=== PATIENT | female | born 1990 | race African-American/Black ===

== ENCOUNTER 2018-04-30 22:32 | Inpatient (IN) | payer MEDICAID ==
[~2018-04-30] VITALS: Ht 165.1 cm; Wt 56.7 kg
--- NOTE | 2018-04-30 23:30 | NUR ---
PT AA/OX4 COMPLAINING OF N/V, STOMACH PAIN, CHEST TIGHTNESS SINCE YESTERDAY. NO S/S SOB. SKIN PINK, WARM, DRY. ACTIVE BOWEL SOUNDS NOTED. AMBULATED TO HOSPITAL BED WITH STEADY GAIT. NAD. VSS. STABLE CONDITION. WILL CONTINUE TO MONITOR.
[2018-05-01] VITALS (7 sets, daily range): BP systolic 90–112; BP diastolic 44–83
[2018-05-01] MEDS ORDERED: ONDANSETRON HCL/PF 4 MG/2 ML VIAL IVP ONE
[2018-05-01] MEDS ORDERED: IV NS 0.9% 500 ML BAG IV ONE
[2018-05-01] MEDS ORDERED: ONDANSETRON HCL/PF 4 MG/2 ML VIAL ONE (00:27)
[2018-05-01 00:44] LABS: BASOPHILS # (AUTO) 0.2 /CMM (0.0-0.2); BASOPHILS % (AUTO) 2.5 % (0.0-2.0); HEMATOCRIT 44 % (33-45); HEMOGLOBIN 14.2 g/dL (11.5-14.8); LYMPHOCYTES # (AUTO) 1.3 /CMM (0.8-4.8); LYMPHOCYTES % (AUTO) 16.7 % (20.0-44.0); MEAN CORPUSCULAR HEMOGLOBIN 29 PG (26.0-33.0); MEAN CORPUSCULAR HGB CONC 32 g/dl (31.0-36.0); MEAN CORPUSCULAR VOLUME 90 fL (82-100); MONOCYTES # (AUTO) 0.8 /CMM (0.1-1.30); MONOCYTES % (AUTO) 10.2 % (2.0-12.0); NEUTROPHILS # (AUTO) 5.6 /CMM (1.8-8.9); NEUTROPHILS % (AUTO) 69.6 % (43.0-81.0); PLATELET COUNT (AUTO) 794 /CMM (150-450); RDW COEFFICIENT OF VARIATION 17.4 (11.5-15.0); RED BLOOD CELL COUNT(AUTO) 4.91 MIL/uL (4.0-5.2)
[2018-05-01 00:54] LABS: CALCIUM, SERUM 7.9 mg/dL (8.5-10.1); CREATININE 0.6 mg/dL (0.6-1.3); POTASSIUM 3.5 mmol/L (3.5-5.1)
[2018-05-01] MEDS ORDERED: INSULIN REGULAR, HUMAN 100 UNIT in IV NS 0.9% 99 ML IV PRN ×2 (01:30)
[2018-05-01] MEDS ORDERED: INSULIN REGULAR, HUMAN 100 UNIT/ML 10 ML VIAL ONE (01:51)
[2018-05-01 02:26] LABS: APPEARANCE,URINE CLEAR (CLEAR); BILIRUBIN,URINE 1+ (NEGATIVE); BLOOD, URINE NEGATIVE Ery/uL (NEGATIVE); COLOR,URINE YELLOW (YELLOW); KETONES,URINE 3+ (NEGATIVE); LEUKOCYTE ESTERASE ,URINE NEGATIVE (NEGATIVE); NITRITE, URINE NEGATIVE (NEGATIVE); PROTEIN,URINE 2+ mg/dl (NEGATIVE); UGLUCOSE 1+ mg/dL (NEGATIVE); UROBILINOGEN,URINE 0.2 EU/dL (0.2)
[2018-05-01 02:32] LABS: RBC,URINE 0-2 /HPF (0-2)
[2018-05-01 02:33] LABS: BACTERIA,URINE Moderate /HPF (None Seen); MUCUS,URINE Moderate /LPF (None Seen); SQUAMOUS EPITHELIAL CELL,UR Few /HPF (None Seen)
[2018-05-01 02:34] LABS: HYALINE CASTS, URINE Few /LPF (None Seen)
--- NOTE | 2018-05-01 02:37 | NUR ---
Patient is resting comfortably in bed with eyes closed. Easily aroused. VSS
[2018-05-01] MEDS ORDERED: AZITHROMYCIN 500 MG in IV D5W 250 ML IV ONE (03:00)
[2018-05-01] MEDS ORDERED: CEFTRIAXONE 1GM BAG (ER ONLY) 1 GM/50 ML PIGGYBACK IV ONE (03:00)
--- NOTE | 2018-05-01 03:03 | NUR ---
REPORT GIVEN TO CONNOR MEGHANN MURRAY
[2018-05-01] MEDS ORDERED: CEFTRIAXONE 1 G VIAL ONE (03:05)
[2018-05-01] MEDS ORDERED: AZITHROMYCIN 500 MG VIAL ONE (03:05)
--- NOTE | 2018-05-01 04:00 | NUR ---
PER MD IDALIA WHITTAKER ORDERS TO DC INSULIN DRIP
--- NOTE | 2018-05-01 04:05 | NUR ---
pt transported to an unit stable condition. [email or web address]. romy.
--- NOTE | 2018-05-01 04:10 | NUR ---
CONNOR RN NOTE PT RECEIVED AWAKE AND ALERT. AMBULATED SAFELY TO BED. ON ROOM AIR AND SATURATING WELL. NOTED DROWSY AND LETHARGIC BUT ANSWERING QUESTIONS PROPERLY. C/O SLIGHT CHEST TIGHTNESS. ENCOURAGED TO REPOSITION. C/O NAUSEA WITH NO EPISODES OF VOMITING. CALL LIGHT WITHIN REACH. WILL MONITOR.
[2018-05-01] MEDS ORDERED: DEXTROSE 50%-WATER 50 ML DISP.SYRIN IV PRN (04:30)
[2018-05-01] MEDS ORDERED: INSULIN GLARGINE, 100 UNIT/ML CARTRIDGE SQ SCH (04:30)
[2018-05-01] MEDS ORDERED: Z GUARD REMEDY 2 OZ OINT TP PRN (05:00)
[2018-05-01] MEDS ORDERED: ACETAMINOPHEN 325 MG TABLET PO PRN (05:00)
[2018-05-01] MEDS ORDERED: ONDANSETRON HCL/PF 4 MG/2 ML VIAL IVP PRN (05:00)
[2018-05-01] MEDS ORDERED: ZOLPIDEM TARTRATE 5 MG TABLET PO PRN (05:00)
[2018-05-01] MEDS: BLOOD SUGAR DIAGNOSTIC 1 EACH STRIP IN SCH ×5 (05:33→21:40)
[2018-05-01] MEDS: INSULIN REGULAR, HUMAN 100 UNIT/ML 3 ML VIAL SQ PRN ×5 (05:35→21:49)
[2018-05-01] MEDS ORDERED: IV NS 0.9% 1,000 ML IV PRN (06:00)
[2018-05-01] MEDS ORDERED: ENOXAPARIN SODIUM 40 MG/0.4 ML DISP.SYRIN SQ SCH (06:00)
[2018-05-01] MEDS ORDERED: IV NS 0.9% 1,000 ML BAG IV ONE (06:30)
--- NOTE | 2018-05-01 07:10 | NUR ---
CONNOR RN OPENING NOTE REPORT RECEIVED FROM PM NURSE.PATIENT IS SLEEPING IN BED.EASILY AROUSABLE. ON ROOM AIR NO SOB NO DISTRESS NOTED AT THIS TIME. NOTED DROWSY AND LETHARGIC BUT ANSWERING QUESTIONS PROPERLY. ON TELE MONITOR ST 116.IV ON LAC#22 WITH NS BOLUS ONGOING. CALL LIGHT WITHIN REACH.BED IS LOCKED AND IN LOW POSITION.SRX3. WILL CONTINUE TO MONITOR.
--- NOTE | 2018-05-01 07:37 | NUR ---
CONNOR RN CLOSING NOTE PT REMAINED STABLE DURING SHIFT. NO ACUTE DISTRESS NOTED. STARTED 3L BOLUS OF NS X1 AND THEN CONTINUE ON NS AT 200ML/HR CONTINUOUS. ACCU CHECKS Q4H.BLOOD SUGAR 270 AND COVERED WITH 12 UNITS OF REGULAR INSULIN. ALL NEEDS ATTENDED TO PROMPTLY. WILL ENDORSE TO NEXT SHIFT FOR CONTINUITY OF CARE.
[2018-05-01] MEDS ORDERED: ESCI10TA PO (08:13)
[2018-05-01] MEDS ORDERED: INSU100V7 SQ (08:13)
[2018-05-01] MEDS: ASPIRIN EC 81 MG TABLET.DR PO SCH (08:54)
[2018-05-01] MEDS: IV NS 0.9% 1,000 ML IV PRN ×3 (10:09→21:58)
--- NOTE | 2018-05-01 10:48 | NUR ---
Social service consult requested by Dr. العراقي for homelessness and drug use. Pt. is a 27 year old female who was admitted to [facility] for DKA. MARIANNA met with pt. bedside. Pt. is alert and oriented x 4. Pt. was initially guarded and defensive but became less guarded and cooperative as the assessment continued. Pt. states she is homeless and has been homeless for " too long." Pt. use to live at her auntie's house in [place] but was requested to leave. Pt. currently live in [facility]. Pt. is linked to services with [facility] facility located at [id number] [place] [address] Karen . Pt's telehealth case manager is Mounika. MARIANNA requested for pt. to sign authorization for release of information so SW can speak with Mounika. Pt. signed release of information authorization form. Pt. denies alcohol use but does use drugs. Pt's drug of choice is methamphetamines. Pt. last used methamphetamine was prior to arrival at [facility]. Pt. is looking into drug treatment program at [facility] and stated she has informed her telehealth case manager Mounika who is assisting the pt. SW also informed pt. she will reach out to [facility] and send a referral for their detox program. Pt. has a history of Depression and Anxiety. Pt. states she is currently having visual hallucinations, in particular seeing zombies due to withdrawal induced hallucinations. Pt. currently denies suicidal and homicidal ideations at this time. MARIANNA contacted Christel Larkin, intake ramp and cargo supervisor at [facility] x [phone] and left her a voicemail message requesting a call back. MARIANNA also contacted Kasey at [facility] and left a voicemail message requesting a call back x [phone]. MARIANNA updated egg caser Nanda regarding tentative discharge plan.
--- NOTE | 2018-05-01 11:17 | NUR ---
MARIANNA left a voicemail message for Mounika, case finishing machine adjuster for pt. at [facility] and requested a call back. MARIANNA also informed her, if she calls on the weekend to contact Nanda showcase maker at [phone].
--- NOTE | 2018-05-01 11:32 | NUR ---
MARIANNA contacted [facility] detox [facility] and spoke to Maria Isabel in the detox program inquiring if they have a female bed availability. Maria Isabel informed MARIANNA that they have no beds at this time.
[2018-05-01 12:11] LABS: CALCIUM, SERUM 7.8 mg/dL (8.5-10.1); CREATININE 0.7 mg/dL (0.6-1.3); MAGNESIUM 1.6 mg/dL (1.8-2.4)
--- NOTE | 2018-05-01 13:15 | NUR ---
CONNOR RN NOTES PATIENT C/O CHEST PAIN ON L UPPER CHEST,NON-RADIATING.AXOX4.VITAL SIGNS STABLE.ON TELE MONITOR SINUS RHYTHM OF 92. MADE AWARE.STAT EKG DONE.RELAYED RESULT TO .SEEN BY IN PERSON.ECHO RESULT IS SEEN .ASKED TO COVER WITH PAIN MEDICATION NORCO.WILL CONTINUE TO MONITOR.
[2018-05-01] MEDS: HYDROCODONE/APAP 10/325MG 1 EA TABLET PO PRN (13:35)
--- NOTE | 2018-05-01 14:57 | NUR ---
Patient is homeless, referred to high school social studies teacher for eval. Pt. is a 27 year old female who was admitted to [facility] for DKA. MARIANNA met with pt. bedside. Pt. is alert and oriented x 4. Pt. was initially guarded and defensive but became less guarded and cooperative as the assessment continued. Pt. states she is homeless and has been homeless for " too long." Pt. use to live at her auntie's house in [place] but was requested to leave. Pt. currently live in [facility]. Pt. is linked to services with [facility] located at [id number] [place] [address] . Pt's lead case manager is Mounika. MARIANNA requested for pt. to sign authorization for release of information so SW can speak with Mounika. Pt. signed release of information authorization form. Pt. denies alcohol use but does use drugs. Pt's drug of choice is methamphetamines. Pt. last used methamphetamine was prior to arrival at [facility]. Pt. is looking into drug treatment program at [facility] and stated she has informed her lead case manager Mounika who is assisting the pt. SW also informed pt. she will reach out to [facility] and send a referral for their detox program. Pt. has a history of Depression and Anxiety. Pt. states she is currently having visual hallucinations, in particular seeing zombies due to withdrawal induced hallucinations. Pt. currently denies suicidal and homicidal ideations at this time. MARIANNA contacted Christel Larkin, intake carpenter supervisor at [facility] x [phone] and left her a voicemail message requesting a call back. MARIANNA also contacted Kasey at [facility] and left a voicemail message requesting a call back x [phone]. MARIANNA updated returned case inspector Nanda regarding tentative discharge plan. Addendum: 05/01/18 at 1458 by JANICE ANNE RN Amended: Links added.
[2018-05-01] MEDS ORDERED: K PHOS NEUTRAL 250 MG TABLET PO ONE (15:30)
--- NOTE | 2018-05-01 15:30 | NUR ---
RN NOTES PATIENT REFUSED BLOOD DRAW.SHE WANT ANOTHER MAKE UP ARRANGER TO DRAW HER LABS.MAKE UP ARRANGER MADE AWARE.SHE SAID SOMEONE COMING AT 5PM.WILL GO TO THE PATIENT.
[2018-05-01] MEDS: POTASSIUM CHLORIDE 20 MEQ TAB.PRT.SR PO SCH ×3 (15:46→18:03)
[2018-05-01] MEDS: Magnesium 1GM/D5W 100ML PREMIX 100 ML IV SCH ×2 (15:47→17:00)
--- NOTE | 2018-05-01 16:00 | NUR ---
WELCOME WAGON HOSTESS NOTES PHARMACY MADE AWARE ABOUT THE LOW K,Mg AND PHOS.GOT NEW ORDERS.
--- NOTE | 2018-05-01 18:53 | NUR ---
HUSBANDRY TECHNICIAN CLOSING NOTE PATIENT IS AWAKE IN BED WATCHING TV. ON ROOM AIR NO SOB NO DISTRESS NOTED AT THIS TIME. STILL LETHARGIC BUT ANSWERING QUESTIONS PROPERLY. ON TELE MONITOR ST 92 .IV ON LAC#22 WITH NS @100 CC/HR.LEFT MESSAGE TO BOYFRIEND TO GET NAME OF THE MEDICATION SHE WAS TAKING AT HOME.WILL ASK PM NURSE TO FOLLOW UP. CALL LIGHT WITHIN REACH.BED IS LOCKED AND IN LOW POSITION.SRX3. WILL ENDORSE TO PM NURSE FOR JUSTO.
[2018-05-01 21:21] LABS: CALCIUM, SERUM 7.7 mg/dL (8.5-10.1); CREATININE 0.7 mg/dL (0.6-1.3); POTASSIUM 3.9 mmol/L (3.5-5.1)
[2018-05-01 21:25] LABS: MAGNESIUM 2.1 mg/dL (1.8-2.4); PHOSPHORUS 3.2 mg/dL (2.5-4.9)
[2018-05-01] MEDS: INSULIN GLARGINE, 100 UNIT/ML CARTRIDGE SQ SCH (21:48)
--- NOTE | 2018-05-01 23:45 | NUR ---
VISUAL COMMUNICATIONS INSTRUCTOR NOTE GAVE REPORT TO NICA ZAVALETA FOR CONTINUITY OF CARE.
[2018-05-02] VITALS (7 sets, daily range): BP systolic 98–112; BP diastolic 58–77
[2018-05-02] MEDS: BLOOD SUGAR DIAGNOSTIC 1 EACH STRIP IN SCH ×6 (00:12→21:32)
[2018-05-02] MEDS: INSULIN REGULAR, HUMAN 100 UNIT/ML 3 ML VIAL SQ PRN ×5 (00:15→21:31)
--- NOTE | 2018-05-02 03:32 | NUR ---
PULP MILL SUPERVISOR NOTE RN RECHECKED GLUCOSE, 32, GIVEN DEXTROSE IV PER PROTOCOL ALONG WITH JUICE AND SNACKS, WILL RECHECK. PT IN NO ACUTE DISTRESS LYING IN BED.
[2018-05-02 05:57] LABS: BASOPHILS % (AUTO) 0.6 % (0.0-2.0); EOSINOPHILS % (AUTO) 0.9 % (0.0-6.0); HEMATOCRIT 37 % (33-45); HEMOGLOBIN 12.1 g/dL (11.5-14.8); LYMPHOCYTES # (AUTO) 1.7 /CMM (0.8-4.8); LYMPHOCYTES % (AUTO) 35.2 % (20.0-44.0); MEAN CORPUSCULAR HEMOGLOBIN 30 PG (26.0-33.0); MEAN CORPUSCULAR HGB CONC 33 g/dl (31.0-36.0); MEAN CORPUSCULAR VOLUME 91 fL (82-100); MONOCYTES # (AUTO) 0.5 /CMM (0.1-1.30); MONOCYTES % (AUTO) 11.5 % (2.0-12.0); NEUTROPHILS # (AUTO) 2.5 /CMM (1.8-8.9); NEUTROPHILS % (AUTO) 51.8 % (43.0-81.0); PLATELET COUNT (AUTO) 612 /CMM (150-450); RDW COEFFICIENT OF VARIATION 17.3 (11.5-15.0); RED BLOOD CELL COUNT(AUTO) 4.03 MIL/uL (4.0-5.2); WHITE BLOOD COUNT (AUTO) 4.7 K/uL (4.3-11.0)
[2018-05-02] MEDS ORDERED: AZITHROMYCIN 500 MG in IV D5W 250 ML IV SCH (06:00)
[2018-05-02] MEDS ORDERED: CEFTRIAXONE 2 G in IV D5W 100 ML IV SCH (06:00)
[2018-05-02 06:16] LABS: CALCIUM, SERUM 8.3 mg/dL (8.5-10.1); CREATININE 0.6 mg/dL (0.6-1.3); MAGNESIUM 1.8 mg/dL (1.8-2.4); PHOSPHORUS 3.4 mg/dL (2.5-4.9); POTASSIUM 3.7 mmol/L (3.5-5.1)
[2018-05-02] MEDS: ASPIRIN EC 81 MG TABLET.DR PO SCH (09:10)
[2018-05-02] MEDS: ENOXAPARIN SODIUM 40 MG/0.4 ML DISP.SYRIN SQ SCH (09:11)
[2018-05-02] MEDS: IV NS 0.9% 1,000 ML IV PRN (10:15)
[2018-05-02] MEDS: HYDROCODONE/APAP 10/325MG 1 EA TABLET PO PRN ×2 (11:01→20:50)
[2018-05-02] MEDS ORDERED: CEPH500T PO (13:15)
[2018-05-02] MEDS: FERROUS SULFATE (325 MG) 325 MG/TAB TABLET PO SCH (16:38)
[2018-05-02] MEDS: FOLIC ACID 1 MG TABLET PO SCH (16:38)
[2018-05-02] MEDS: LACTOBACILLUS RHAMNOSUS GG 1 EACH CAP.SPRINK PO SCH (16:38)
[2018-05-02] MEDS: MULTIVITAMINS,THERAGRAN 1 UDTAB TABLET PO SCH (16:38)
--- NOTE | 2018-05-02 19:16 | NUR ---
RN NOTE PT REMAINED STABLE THROUGHOUT SHIFT, AMBULATES, PO INTAKE 100% ASKS FOR SNACKS, BLOOD SUGAR BEEN CHEACKE ORDERED, AND COVERED WITH INSULIN. NEEDS MET, SAFETY MEASURES IN PLACE, WILL ENDORSE TO UTILITY SYSTEM REPAIRER.
--- NOTE | 2018-05-02 19:30 | NUR ---
TELERN FULLY AWAKE, RESTING QUIETLY NO NEEDS FOR NOW, TO CONTINUE.
--- NOTE | 2018-05-02 20:50 | NUR ---
TELERN ON THE MONITOR. VERBALIZES HEADACHE, REQUESTED TO TAKE NORCO, REFUSES TYLENOL. 1 TAB OF NORCO ADMINISTERED. SAFETY PRECAUTIONS EMPHASIZED.
--- NOTE | 2018-05-02 21:15 | NUR ---
TELERN BS WAS 223, COVERED WITH 8 UNITS OF REGULAR INSULIN SQ. LANTUS ADMIISTERED ORDERED. ACCUCHECKED Q 4 HOURS ORDERED. SNACKS PROVIDED. RELIEF FROM NORCO.
[2018-05-02] MEDS: INSULIN GLARGINE, 100 UNIT/ML CARTRIDGE SQ SCH (21:32)
--- NOTE | 2018-05-02 23:21 | NUR ---
CUFF KNITTER REMAINS SR ON THE MONITOR. SLEEPING APPEARS COMFORTABLE.
[2018-05-03] VITALS (8 sets, daily range): BP systolic 94–110; BP diastolic 55–74
[2018-05-03] MEDS: BLOOD SUGAR DIAGNOSTIC 1 EACH STRIP IN SCH ×4 (01:22→12:39)
--- NOTE | 2018-05-03 01:22 | NUR ---
TELERN BS WAS 80. WENT BACK TO SLEEP.
--- NOTE | 2018-05-03 05:05 | NUR ---
TELERN BS WAS 141, REFUSED ANY COVERAGE FOR NOW. STATED WILL WAIT TILL BREAKFAST IS SERVED.
[2018-05-03] MEDS: AZITHROMYCIN 250 MG TABLET PO SCH (05:35)
[2018-05-03 06:04] LABS: BASOPHILS % (AUTO) 0.6 % (0.0-2.0); EOSINOPHILS % (AUTO) 1.3 % (0.0-6.0); HEMATOCRIT 37 % (33-45); HEMOGLOBIN 11.9 g/dL (11.5-14.8); LYMPHOCYTES # (AUTO) 1.8 /CMM (0.8-4.8); LYMPHOCYTES % (AUTO) 47.3 % (20.0-44.0); MEAN CORPUSCULAR HEMOGLOBIN 30 PG (26.0-33.0); MEAN CORPUSCULAR HGB CONC 33 g/dl (31.0-36.0); MEAN CORPUSCULAR VOLUME 92 fL (82-100); MONOCYTES # (AUTO) 0.4 /CMM (0.1-1.30); MONOCYTES % (AUTO) 11.6 % (2.0-12.0); NEUTROPHILS # (AUTO) 1.5 /CMM (1.8-8.9); NEUTROPHILS % (AUTO) 39.2 % (43.0-81.0); PLATELET COUNT (AUTO) 524 /CMM (150-450); RDW COEFFICIENT OF VARIATION 17.8 (11.5-15.0); RED BLOOD CELL COUNT(AUTO) 3.99 MIL/uL (4.0-5.2); WHITE BLOOD COUNT (AUTO) 3.9 K/uL (4.3-11.0)
--- NOTE | 2018-05-03 06:05 | NUR ---
TELERN REMAINS SR ON THE MONITOR. NO OTHER NEEDS MADE
[2018-05-03 06:18] LABS: CALCIUM, SERUM 8.3 mg/dL (8.5-10.1); CREATININE 0.5 mg/dL (0.6-1.3); MAGNESIUM 1.8 mg/dL (1.8-2.4); PHOSPHORUS 4.2 mg/dL (2.5-4.9); POTASSIUM 3.8 mmol/L (3.5-5.1)
--- NOTE | 2018-05-03 07:15 | NUR ---
TRANSPORTATION MAINTENANCE OPERATOR OPENING NOTE RECEIVED PATIENT THIS MORNING IN STABLE CONDITION, NO SIGNS OR SYMPTOMS OF DISTRESS. SINUS RHYTHM ON SCIENTIFIC DATABASE CURATOR. A&OX4, LEFT AC IV SITE INTACT. BED IN LOW AND LOCKED POSITION, ALL NEEDS MET CURRENTLY, CALL LIGHT WITHIN REACH, WILL CONTINUE TO MONITOR.
[2018-05-03] MEDS: FOLIC ACID 1 MG TABLET PO SCH (08:48)
[2018-05-03] MEDS: MULTIVITAMINS,THERAGRAN 1 UDTAB TABLET PO SCH (08:48)
[2018-05-03] MEDS: LACTOBACILLUS RHAMNOSUS GG 1 EACH CAP.SPRINK PO SCH ×2 (08:48→16:26)
[2018-05-03] MEDS: FERROUS SULFATE (325 MG) 325 MG/TAB TABLET PO SCH ×2 (08:48→16:26)
[2018-05-03] MEDS: ASPIRIN EC 81 MG TABLET.DR PO SCH (08:48)
[2018-05-03] MEDS: INSULIN REGULAR, HUMAN 100 UNIT/ML 3 ML VIAL SQ PRN ×2 (08:51→17:19)
[2018-05-03] MEDS: ENOXAPARIN SODIUM 40 MG/0.4 ML DISP.SYRIN SQ SCH (08:52)
[2018-05-03] MEDS: HYDROCODONE/APAP 10/325MG 1 EA TABLET PO PRN ×2 (08:56→19:45)
[2018-05-03] MEDS ORDERED: DEXTROSE 50%-WATER 50 ML DISP.SYRIN IV PRN (13:30)
[2018-05-03] MEDS ORDERED: *INSULIN REGULAR(HUMULIN R)HUM 100 UNIT/ML VIAL SQ PRN (13:30)
--- NOTE | 2018-05-03 15:58 | NUR ---
SENIOR CLIMATE ADVISOR NOTES SPOKE WITH DR FORRESTER TO OBTAIN MEDICATION FOR GAS SINCE PATIENT IS COMPLAINING FOR GAS AND WANTS SIMETHICONE, WILL F/U WITH .
[2018-05-03] MEDS: BLOOD SUGAR DIAGNOSTIC 1 EACH STRIP VI SCH ×2 (17:10→21:33)
--- NOTE | 2018-05-03 18:56 | NUR ---
FELT CUTTER CLOSING NOTE PATIENT RESTING IN BED IN STABLE CONDITION, ON ROOM AIR, NO RESPIRATORY DISTRESS OR COMPLAINT OF PAIN. A&OX4, ABLE TO VERBALIZE NEEDS. SINUS RHYTHM ON FOUNTAIN DISPENSER, HR IN THE 70S. IV SITE ON LEFT AC INTACT. ALL NEEDS MET CURRENTLY, CALL LIGHT WITHIN REACH, BED LOW AND LOCKED, WILL ENDORSE TO ONCOMING NURSE.
--- NOTE | 2018-05-03 19:45 | NUR ---
SUPPLY CHAIN CONSULTANT INITIAL NOTES, RECEIVED PATIENT IN BED ALERT AND ORIENTED X4 ABLE TO VERBALIZED NEEDS AND CONCERNS, BREATHING EVEN AND UNLABORED, NO S/S OF SOB/ACUTE DISTRESS NOTED AT THIS TIME, C/O HEADACHE AT THIS TIME, WILL ADMINISTERED MEDICATION ORDERED, SINUS RHYTHM ON HARD TILE SETTER APPRENTICE IN 70S AT THIS TIME, LEFT AC IV SITE INTACT, NO S/S OF ABNORMALITY OR INFECTION NOTED AT THIS TIME, BED IN LOW AND LOCKED POSITION, ALL NEEDS PROVIDED , CALL LIGHT WITHIN REACH, WILL CONTINUE TO MONITOR.
[2018-05-03] MEDS: INSULIN GLARGINE, 100 UNIT/ML CARTRIDGE SQ SCH (21:22)
[2018-05-04] VITALS: BP 98/62
[2018-05-04 04:00] VITALS: BP 93/57
[2018-05-04] MEDS: AZITHROMYCIN 250 MG TABLET PO SCH (06:09)
[2018-05-04 06:49] LABS: CREATININE 0.6 mg/dL (0.6-1.3); MAGNESIUM 1.8 mg/dL (1.8-2.4); PHOSPHORUS 3.8 mg/dL (2.5-4.9); POTASSIUM 4.2 mmol/L (3.5-5.1)
--- NOTE | 2018-05-04 06:53 | NUR ---
DIRECTOR OF SLOT OPERATIONS CLOSING NOTES, PATIENT IN BED SLEEPING AT THIS TIME, BREATHING EVEN AND UNLABORED, NO S/S OF SOB/ACUTE DISTRESS NOTED AT THIS TIME, SINUS RHYTHM ON TOWER LOADER OPERATOR IN 70S AT THIS TIME, LEFT AC IV SITE INTACT, NO S/S OF ABNORMALITY OR INFECTION NOTED AT THIS TIME, BED IN LOW AND LOCKED POSITION, ALL NEEDS PROVIDED , NO S/S OF HYPER/HYPOGLYCEMIC EPISODES, STABLE THROUGHOUT THE NIGHT, CALL LIGHT WITHIN REACH, ENDORSE CONTINUITY OF CARE TO ONCOMING NURSE. .
--- NOTE | 2018-05-04 07:15 | NUR ---
AGENT BASED MODELER OPENING NOTE RECEIVED PATIENT SITTING IN BED, STABLE CONDITION, SINUS RHYTHM ON LOCKSTITCH TUNNEL ELASTIC OPERATOR, HEART RATE IN THE 80S. NO APPARENT DISTRESS OR COMPLAINT OF PAIN. DISCUSSED CARE PLAN FOR TODAY WITH PATIENT. BED LOW AND LOCKED, CALL LIGHT WITHIN REACH, WILL CONTINUE TO MONITOR.
[2018-05-04 08:00] VITALS: BP 108/70
[2018-05-04] MEDS: BLOOD SUGAR DIAGNOSTIC 1 EACH STRIP VI SCH ×2 (08:26→11:31)
[2018-05-04] MEDS: LACTOBACILLUS RHAMNOSUS GG 1 EACH CAP.SPRINK PO SCH (08:28)
[2018-05-04] MEDS: ENOXAPARIN SODIUM 40 MG/0.4 ML DISP.SYRIN SQ SCH (08:28)
[2018-05-04] MEDS: ASPIRIN EC 81 MG TABLET.DR PO SCH (08:28)
[2018-05-04] MEDS: MULTIVITAMINS,THERAGRAN 1 UDTAB TABLET PO SCH (08:28)
[2018-05-04] MEDS: FERROUS SULFATE (325 MG) 325 MG/TAB TABLET PO SCH (08:28)
[2018-05-04] MEDS: FOLIC ACID 1 MG TABLET PO SCH (08:28)
[2018-05-04] MEDS: INSULIN REGULAR, HUMAN 100 UNIT/ML 3 ML VIAL SQ PRN (08:32)
--- NOTE | 2018-05-04 09:51 | NUR ---
MARIANNA contacted [facility] and left another voicemail message for transaction coordinator Christel Larkin x [phone] requesting a call back. MARIANNA also sent her an email at [email or web address]
--- NOTE | 2018-05-04 10:31 | NUR ---
MARIANNA received a call back from Christel Larkin, Intake Grape Picker x [phone] stating that pt. can meet her at [facility] tomorrow at 9AM for their detox program. MARIANNA met with pt. bedside. Pt. is alert and oriented x 4. Pt. was friendly and cooperative with SW. MARIANNA informed pt. that she has an assessment at [facility] scheduled for 9AM tomorrow May 05 for their detox program. [facility] is located at [address] [place] [address], in [place] Pt. was very appreciative and stated she would like to leave today and go see her new accounts clerk at [facility] located at [address] [place] [address] in [place] and will go tomorrow to [place] at 9AM. MARIANNA encouraged pt. to keep with her appointment tomorrow at [facility]. MARIANNA informed Nursing drywall application supervisor Christel that pt. will need $2 for the bus to transport her to the christian. Christel to follow up with pt's MEGHANN Santana regarding the $2. Pt. stated she will also go to [facility] after her christian to take a shower and meet with her disease case manager rn Mounika. MARIANNA also gave pt. a pair of sneakers since pt. did not have any shoes. No other social service needs are required at this time. CONNOR Barrett and pt's RN Esther have been updated with pt's discharge plan. MARIANNA has requested an early lunch for the pt. since she wants to leave the hospital by noon today. Addendum: 05/04/18 at 1241 by SAE CABRAL Homeless Patient waiver form was signed by pt. and placed in pt's chart.
--- NOTE | 2018-05-04 12:20 | NUR ---
RN CLOSING NOTE PATIENT PREPARED FOR DISCHARGE, ATE LUNCH, EXITCARE COMPLETED, PAPERWORK, DISCHARGE INSTRUCTIONS, AND TEACHING PROVIDED DC PAPERWORK SIGNED, TELE BOX REMOVED, IV SITE IN LEFT AC REMOVED, BELONGINGS CHECKED AND SIGNED, VITAL SIGNS STABLE, BLOOD SUGAR CHECKED, 2 DOLLARS GIVEN TO PATIENT FROM RANDY SHIRT LINE OPERATOR, PATIENT REFUSED INSULIN AT THIS TIME. PATIENT EXITED THE BUILDING WITH BELONGINGS IN STABLE CONDITION AT 11:56AM.
== END 2018-05-04 13:00 | disposition home or self-care (01) | DRG 145 ==
LOC: ER 22:34 → TELE-TD 05-01 03:05 → TELE1 05-01 16:50
PROVIDERS: ADMIT Nurse Practitioner Acute Care; ATTEND Internal Medicine
DX: R07.81 Pleurodynia (principal); J15.9 Unspecified bacterial pneumonia; E10.65 Type 1 diabetes mellitus with hyperglycemia; E83.39 Other disorders of phosphorus metabolism; E83.42 Hypomagnesemia; F15.20 Other stimulant dependence, uncomplicated; Z79.4 Long term (current) use of insulin; Z59.0 Homelessness; F12.90 Cannabis use, unspecified, uncomplicated; D47.3 Essential (hemorrhagic) thrombocythemia; Z91.19 Patient's noncompliance with other medical treatment and regimen; Z87.891 Personal history of nicotine dependence; G43.909 Migraine, unspecified, not intractable, without status migrainosus; Z79.899 Other long term (current) drug therapy
CPT/HCPCS: 36415; 71045-TC; 71250-TC; 80048-TC; 80061-TC; 80305; 81000-TC; 82962-TC; 83540-TC; 83605-TC; 83735-TC; 84100-TC; 84703-TC; 85025-TC; 85652-TC; 87040-TC; 87081-TC; 87086-TC; 93307-TC; A4216; A4606; J0456; J0696; J1650; J1815; J2405; J3475; J7030; J7060; Z7610

== ENCOUNTER 2022-01-04 14:24 | Inpatient (IN) | payer MEDICAID, OTHER ==
[2022-01-04] VITALS (7 sets, daily range): BP systolic 115–136; BP diastolic 77–96
[~2022-01-04] VITALS: Ht 165.1 cm; Wt 47.8 kg
[~2022-01-04 14:24] MED LIST: ESCI10TA PO; INSU100V7 SQ
--- NOTE | 2022-01-04 14:30 | NUR ---
BIBRA[facility] C/O WEAKNESS/FEELING SICK SINCE THIS MORNING. HYPERGLYCEMIA, BS: 567 "INSULIN NOT WORKING". PLACED ON BED, AAOX3.
--- NOTE | 2022-01-04 14:31 | NUR ---
CALLED FOR MIDLINE ETA 8PM.
--- NOTE | 2022-01-04 14:33 | NUR ---
POC GLUCOSE 374 MG/DL
--- NOTE | 2022-01-04 14:40 | NUR ---
BLOOD DRAWN AND SENT TO LAB
[2022-01-04] MEDS ORDERED: ONDANSETRON HCL/PF 4 MG/2 ML VIAL ONE (14:43)
[2022-01-04 15:00] LABS: BASOPHILS # (AUTO) 0.1 K/uL (0.0-0.2); BASOPHILS % (AUTO) 1.2 % (0.0-2.0); EOSINOPHILS % (AUTO) 0.3 % (0.0-6.0); HEMATOCRIT 39 % (33-45); HEMOGLOBIN 11.8 g/dL (11.5-14.8); LYMPHOCYTES % (AUTO) 26.5 % (20.0-44.0); MEAN CORPUSCULAR HGB CONC 31 g/dl (31.0-36.0); MEAN CORPUSCULAR VOLUME 80 fL (82-100); MONOCYTES # (AUTO) 0.4 K/uL (0.1-1.30); MONOCYTES % (AUTO) 5.1 % (2.0-12.0); NEUTROPHILS % (AUTO) 66.9 % (43.0-81.0); PLATELET COUNT (AUTO) 566 K/uL (150-450); RED BLOOD CELL COUNT(AUTO) 4.83 MIL/uL (4.0-5.2); WHITE BLOOD COUNT (AUTO) 7.4 K/uL (4.3-11.0)
[2022-01-04] MEDS ORDERED: IV NS 0.9% 1,000 ML BAG IV ONE ×2 (15:00→17:30)
[2022-01-04] MEDS ORDERED: ONDANSETRON HCL/PF 4 MG/2 ML VIAL IVP ONE (15:00)
[2022-01-04 15:21] LABS: ALANINE AMINOTRANSFERASE 52 U/L (12-78); ALBUMIN 3.7 g/dL (3.4-5.0); ALKALINE PHOSPHATASE 203 U/L (46-116); ASPARTATE AMINOTRANSFERASE 53 U/L (15-37); BILIRUBIN,DIRECT 0.1 mg/dL (0.0-0.2); BILIRUBIN,TOTAL 0.3 mg/dL (0.2-1.0); CALCIUM, SERUM 9.3 mg/dL (8.5-10.1); CARBON DIOXIDE 17 mmol/L (21-32); CHLORIDE 90 mmol/L (98-107); CREATININE 0.8 mg/dL (0.6-1.3); LIPASE 215 U/L (73-393); POTASSIUM 4.2 mmol/L (3.5-5.1); SODIUM SERUM 128 mmol/L (136-145); TOTAL PROTEIN, SERUM 7.9 g/dL (6.4-8.2); UREA NITROGEN, BLOOD 20 mg/dL (7-18)
[2022-01-04] MEDS ORDERED: ONDANSETRON HCL/PF - ER 4 MG/2 ML VIAL IV ONE (15:30)
--- NOTE | 2022-01-04 15:30 | NUR ---
Lexi zimmerman in ED - 01/04/22 at 1531 by SATINDER BIBRA39 [facility] C/O WEAKNESS/FEELING SICK SINCE THIS MORNING. HYPERGLYCEMIA, BS: 567 "INSULIN NOT WORKING". PLACED ON BED, AAOX3
[2022-01-04 15:35] LABS: GLUCOSE 361 mg/dL (74-106)
[2022-01-04] MEDS ORDERED: INSULIN REGULAR, HUMAN 100 UNITS in IV NS 0.9% 100 ML IV PRN ×2 (16:00)
--- NOTE | 2022-01-04 16:00 | NUR ---
SWAB FOR COVID 19 SENT TO LAB
[2022-01-04 16:05] LABS: PHOSPHORUS 3.3 mg/dL (2.5-4.9)
[2022-01-04 16:08] LABS: BILIRUBIN,URINE NEGATIVE (NEGATIVE); COLOR,URINE YELLOW (YELLOW); LEUKOCYTE ESTERASE ,URINE NEGATIVE (NEGATIVE); NITRITE, URINE NEGATIVE (NEGATIVE); PH,URINE 5.5 (5.0-8.0); PROTEIN,URINE NEGATIVE (NEGATIVE); UGLUCOSE >=1000 mg/dL (NEGATIVE); UROBILINOGEN,URINE 0.2 EU/dL (0.2)
--- NOTE | 2022-01-04 16:17 | NUR ---
MOVE SHEET SUBMITTED AND CALLED FOR ICU BED.
[2022-01-04 16:33] LABS: BACTERIA,URINE Few /HPF (None Seen); RBC,URINE 0-2 /HPF (0-2); SQUAMOUS EPITHELIAL CELL,UR Few /HPF (None Seen); YEAST,URINE Rare /HPF (None Seen)
[2022-01-04] MEDS ORDERED: MAGNESIUM HYDROXIDE 30 ML UDC PO PRN (17:00)
[2022-01-04] MEDS ORDERED: ZOLPIDEM TARTRATE 5 MG TABLET PO PRN (17:00)
[2022-01-04] MEDS ORDERED: Z GUARD REMEDY 4 OZ OINT TP PRN (17:00)
[2022-01-04] MEDS ORDERED: MAG HYDROX/AL HYDROX/SIMETH 30 ML UDC PO PRN (17:00)
[2022-01-04] MEDS ORDERED: IV D5/0.45 NACL 1,000 ML IV SCH (17:00)
[2022-01-04] MEDS ORDERED: ONDANSETRON HCL/PF 4 MG/2 ML VIAL IVP PRN (17:00)
[2022-01-04] MEDS ORDERED: ACETAMINOPHEN 325 MG TABLET PO PRN (17:00)
[2022-01-04] MEDS ORDERED: FAMOTIDINE (20 MG) 20 MG TABLET ONE (17:22)
[2022-01-04] MEDS ORDERED: FAMOTIDINE/PF INJ 20 MG/2 ML VIAL IV ONE ×3 (17:23→23:30)
[2022-01-04] MEDS ORDERED: IV PREMIX NS +20MEQ KCL 1,000 L IV PRN (17:30)
--- NOTE | 2022-01-04 17:34 | NUR ---
GOT BED 256 ICU
--- NOTE | 2022-01-04 18:00 | NUR ---
REPORT GIVEN TO MEGHANN RUBIO ICU
--- NOTE | 2022-01-04 18:25 | NUR ---
PATIENT ADMITTED TO ICU FOR JUSTO
[2022-01-04] MEDS ORDERED: INSULIN REGULAR, HUMAN 100 UNIT in IV NS 0.9% 99 ML IV PRN ×2 (18:30)
--- NOTE | 2022-01-04 18:35 | NUR ---
RN opening notes: received patient from ER, alert,oriented x3, with dx of DKA,respiration is even and unlabored on room air, with right and left AC gauge 20 patent and flushed well, no pain or discomfort, skin assessment done,skin intact, patient continent using bedside commode, blood sugar 155mg/dl. on insulin drip at rate 2.32units and D5 1/2 NS at 125 ml/hr, patient sinus tachycardia on monitor, bed kept in low and locked position, call light within reach
[2022-01-04] MEDS: BLOOD SUGAR DIAGNOSTIC 1 EACH STRIP IN SCH ×3 (18:42→21:04)
[2022-01-04] MEDS ORDERED: IV D5/0.45 NACL 1,000 ML IV PRN (19:00)
[2022-01-04 20:55] LABS: CALCIUM, SERUM 8.2 mg/dL (8.5-10.1); CREATININE 0.5 mg/dL (0.6-1.3); POTASSIUM 3.9 mmol/L (3.5-5.1)
[2022-01-04 21:13] LABS: MAGNESIUM 1.8 mg/dL (1.8-2.4); PHOSPHORUS 2.7 mg/dL (2.5-4.9)
--- NOTE | 2022-01-04 21:21 | NUR ---
ICU/RN: SPOKE WITH JOSE BARTON ABOUT PT LATEST POC BLOOD GLUCOSE 142 AND LATEST ANION GAP 11. NEW ORDERS TO DC INSULIN DRIP START ACCU-CHECK Q4H x4 WITH MODERATE SLIDING SCALE, THEN SWITCH TO ACCU-CHECK Q6H WITH MODERATE SLIDING SCALE. CONTINUE CURRENT IV FLUIDS AND CANCEL MIDNIGHT BMP AND RECHECK IN AM.
[2022-01-04] MEDS ORDERED: INSULIN REGULAR, HUMAN 100 UNIT/ML 3 ML VIAL SQ PRN ×3 (21:30→22:00)
[2022-01-04] MEDS ORDERED: DEXTROSE 50%-WATER 50 ML DISP.SYRIN IV PRN ×3 (21:30→22:00)
--- NOTE | 2022-01-04 23:09 | NUR ---
ICU/RN: PT COMPLAINT OF HEARTBURN. SPOKE WITH JOSE BARTON. PEPCID 20MG IVP x1 ORDER RECIEVED AND CARRIED OUT. WILL CONTINUE TO MONITOR.
[2022-01-05] VITALS (24 sets, daily range): BP systolic 80–127; BP diastolic 33–87
[2022-01-05] MEDS ORDERED: BLOOD SUGAR DIAGNOSTIC 1 EACH STRIP IN SCH ×4 (01:00→18:00)
[2022-01-05] MEDS ORDERED: DEXTROSE 50%-WATER 50 ML DISP.SYRIN IV PRN ×2 (01:30→09:30)
[2022-01-05] MEDS: BLOOD SUGAR DIAGNOSTIC 1 EACH STRIP IN SCH ×2 (01:36→05:06)
[2022-01-05] MEDS: INSULIN REGULAR, HUMAN 100 UNIT/ML 3 ML VIAL SQ PRN ×4 (01:36→17:30)
[2022-01-05] MEDS: IV NS 0.9% 1,000 ML IV PRN ×4 (01:37→21:20)
--- NOTE | 2022-01-05 01:37 | NUR ---
ICU/RN: SPOKE WITH JOSE MISHRA ACNP ABOUT PT POC GLUCOSE 483. NEW ORDERS TO CHANGE SLIDING SCALE TO AGGRESSIVE GIVE MAX COVERAGE AND CHANGE IVF TO NS@125ML/HR. CARRIED OUT. WILL CONTINUE TO MONITOR.
[2022-01-05 05:43] LABS: BASOPHILS # (AUTO) 0.1 K/uL (0.0-0.2); BASOPHILS % (AUTO) 1.1 % (0.0-2.0); EOSINOPHILS % (AUTO) 0.5 % (0.0-6.0); HEMATOCRIT 30 % (33-45); HEMOGLOBIN 9.6 g/dL (11.5-14.8); LYMPHOCYTES # (AUTO) 1.7 K/uL (0.8-4.8); LYMPHOCYTES % (AUTO) 19.5 % (20.0-44.0); MEAN CORPUSCULAR HGB CONC 32 g/dl (31.0-36.0); MEAN CORPUSCULAR VOLUME 77 fL (82-100); MONOCYTES # (AUTO) 0.5 K/uL (0.1-1.30); MONOCYTES % (AUTO) 5.6 % (2.0-12.0); NEUTROPHILS # (AUTO) 6.3 K/uL (1.8-8.9); NEUTROPHILS % (AUTO) 73.3 % (43.0-81.0); PLATELET COUNT (AUTO) 450 K/uL (150-450); RED BLOOD CELL COUNT(AUTO) 3.93 MIL/uL (4.0-5.2); WHITE BLOOD COUNT (AUTO) 8.6 K/uL (4.3-11.0)
[2022-01-05 05:55] LABS: CALCIUM, SERUM 8.3 mg/dL (8.5-10.1); CREATININE 0.7 mg/dL (0.6-1.3); PHOSPHORUS 2.3 mg/dL (2.5-4.9); POTASSIUM 3.9 mmol/L (3.5-5.1)
--- NOTE | 2022-01-05 06:59 | NUR ---
ICU/RN: ENDORSED TO KIM ZAVALETA TO CHANGE INSULIN SLIDING SCALE TO Q6H AFTER THE 1300 POC GLUCOSE CHECK.
--- NOTE | 2022-01-05 07:05 | NUR ---
RN NOTES RECEIVED PT ON BED, A/Ox4, ON RA, NO DISTESS NOTED, ON TELE ST HR IN 110'S, IV SITES CLEAN, DRY AND INTACT, NS AT 125CC/HR RUNNING , SR UP x3, CALL LIGHT WITHIN EASY REACH, BED LOCKED AND IN LOWEST POSITION, CONTINUE TO MONITOR .
[2022-01-05] MEDS ORDERED: K PHOS NEUTRAL 250 MG TABLET PO ONE (09:00)
[2022-01-05] MEDS ORDERED: *INSULIN REGULAR(HUMULIN R)HUM 100 UNIT/ML VIAL SQ PRN (09:30)
[2022-01-05] MEDS ORDERED: IV PREMIX NS +20MEQ KCL 20 MEQ/L BAG IV ONE (10:17)
--- NOTE | 2022-01-05 10:41 | NUR ---
RN NOTES REPORT GIVEN TO ANTIONETTE ZAVALETA FOR CONTINUITY OF CARE , PT TRANSFERRED TO ROOM 314 MS STATUS IN STABLE CONDITION, WITH ALL HER BELONGINGS .
--- NOTE | 2022-01-05 10:50 | NUR ---
ADMISSION RN NOTES PT ADMITTED FROM ICU. RECEIVED REPORT FROM ICU NURSE PEDRO. RECEIVED PT AWAKE, A/O X4. ABLE TO MAKE NEEDS KNOWN. ON RA, TOLERATING WELL. BREATHING EVEN AND UNLABORED. NOT IN ANY SIGN OF DISTRESS. DENIES PAIN OR DISCOMFORT AT THIS TIME. ON TELE MONITOR WITH CURRENT READING OF SINUS TACH, HR 110. NO COMPLAIN OF CARDIAC DISCOMFORT OR DISTRESS AT THIS TIME. IV ACCESS ON RAC G#20 SALINE LOCK, INTACT AND PATENT. IV ACCESS ON LFA G #20 INTACT AND PATENT WITH NS RUNNING AT 125ML/HR. SKIN INTACT WITH NO SKIN IMPAIRMENT NOTED. SAFETY MEASURES IN PLACE: BED AT LOWEST AND LOCKED POSITION, SIDE RAILS UPX2, CALL LIGHT WITHIN EASY REACH. WILL CONTINUE TO MONITOR PT AND WITH PLAN OF CARE.
[2022-01-05] MEDS: BLOOD SUGAR DIAGNOSTIC 1 EACH STRIP VI SCH ×3 (11:55→22:06)
--- NOTE | 2022-01-05 19:05 | NUR ---
RN NOTES PT WAS SCANNED INCORRECTLY FOR ACCUCHECK. BUT PT'S, ACCUCHECK DONE AT 1200 WAS 356 MG/DL, 15 UNITS WAS GIVEN ORDERED PER SLIDING SCALE. ACCUCHECK AT 1730 IS 238 MG/DL, 6 UNITS WAS GIVEN ORDERED PER SLIDING SCALE. RECHECKED PT'S CURRENT BS AND IT'S 359 MG/DL. Addendum: 01/05/22 at 2049 by WARREN PEREZ RN ADDENDUM ACCUCHECK RESULTS WAS DOCUMENTED IN EMAR.
--- NOTE | 2022-01-05 19:35 | NUR ---
ELECTRIC MOTOR CONTROLS ASSEMBLER CLOSING NOTES PT IN BED AWAKE. A/O X4. ABLE TO MAKE NEEDS KNOWN. PT ON RA, TOLERATING WELL. BREATHING EVEN AND UNLABORED. NOT IN ANY SIGN OF RESPIRATORY DISTRESS. ON TELE MONITOR WITH CURRENT READING OF SINUS TACH, HR 109. NO COMPLAIN OF CARDIAC DISCOMFORT OR DISTRESS VOICED AT THIS TIME. IV ACCESS IN RAC G #20 INTACT AND PATENT. ALSO IV ACCESS IN LFA G #20 INTACT AND PATENT WITH NS RUNNING AT 125ML/HR. SAFETY MEASURES IN PLACE: BED AT LOWEST AND LOCKED POSITION, SIDE RAILS UPX2, CALL LIGHT WITHIN EASY REACH. ENDORSED TO LABORER SHELLFISH PROCESSING NURSE FOR CONTINUITY OF CARE.
--- NOTE | 2022-01-05 19:36 | NUR ---
MS RN OPENING NOTE RECEIVED PATIENT IN BED WITH EYES CLOSED, EASY TO AROUSE. A/OX4. NO S/S OF APPARENT DISTRESS ON ROOM AIR. NO C/O PAIN AT THIS TIME. IV NS RUNNING @125 ML/HR. SAFETY IN PLACE. ORIENTED TO THE USE OF CALL LIGHT. SAFETY IN PLACE. WILL CONTINUE WITH PLAN OF CARE FOR PATIENT.
[2022-01-05] MEDS ORDERED: INSULIN GLARGINE, 100 UNIT/ML CARTRIDGE SQ SCH (22:00)
--- NOTE | 2022-01-05 22:31 | NUR ---
MS RN NOTE PATIENT BLOOD SUGAR 439 THIS 2200. INFORMATION STRATEGIST, TAD GARCIA MADE AWARE. PATIENT DOES HAVE SCHEDULED LANTUS GIVEN 30 UNITS AND COVERAGE 10 UNITS OF REGULAR INSULIN. PATIENT VERY NON-COMPLIANT WITH DIET AND GETS ANGRY AND PASSIVE WITH PATIENT TEACHING.
--- NOTE | 2022-01-05 22:34 | NUR ---
MS RN NOTE GIVEN AMBIEN 5 MG PER PATIENT REQUEST.
[2022-01-06 06:23] LABS: CALCIUM, SERUM 8.1 mg/dL (8.5-10.1); CREATININE 0.5 mg/dL (0.6-1.3); PHOSPHORUS 4.3 mg/dL (2.5-4.9); POTASSIUM 3.8 mmol/L (3.5-5.1)
[2022-01-06] MEDS: INSULIN REGULAR, HUMAN 100 UNIT/ML 3 ML VIAL SQ PRN ×2 (06:24→11:31)
[2022-01-06] MEDS: BLOOD SUGAR DIAGNOSTIC 1 EACH STRIP VI SCH ×2 (06:27→11:35)
--- NOTE | 2022-01-06 06:43 | NUR ---
MS RN NOTE CALLED DIETARY. PATIENT REQUESTING FOR EGG. THEY WILL SERVE SCRAMBLED EGG PER DIETARY.
--- NOTE | 2022-01-06 07:07 | NUR ---
MS RN NOTE REFUSED TO BE PUT BACK IN HER IV FLUIDS THIS MORNING. PER PATIENT "NO! I AM GOING HOME TODAY". BENEFITS OF FLUID EXPLAINED
--- NOTE | 2022-01-06 07:09 | NUR ---
MS RN CLOSING NOTE PATIENT IN BED WITH EYES CLOSED. EASY TO AROUSE. NO S/S OF APPARENT DISTRESS ON ROOM AIR. NO C/O PAIN AT THIS TIME. FLUIDS ON STANDBY-- ENDORSED TO MEGHANN MERINO PATIENT REFUSED. ALL NEEDS ATTENDED. ALL SCHEDULED MEDS ADMINISTERED. SAFETY KEPT IN PLACE THE WHOLE SHIFT. ENDORSED TO MEGHANN MERINO FOR CONTINUITY OF CARE.
--- NOTE | 2022-01-06 07:30 | NUR ---
MS RN OPENING NOTE RECEIVED PATIENT IN BED WITH EYES CLOSED, EASY TO AROUSE. A/OX4. NO S/S OF APPARENT DISTRESS ON ROOM AIR. NO C/O PAIN AT THIS TIME. IV ACCESS ON RAC G#20 AND LFA G#20, REFUSES IV FLUID AT THIS TIME. SAFETY MEASURES IN PLACE: BED ON LOWEST LOCKED POSITION, SIDE RAILS UP X 2, CALL LIGHT WITHIN EASY REACH. WILL CONTINUE TO MONITOR PATIENT ACCORDINGLY.
[2022-01-06 08:00] VITALS: BP 95/55
--- NOTE | 2022-01-06 13:04 | NUR ---
RN NOTES PATIENT IS FOR DISCHARGE TODAY. PER PATIENT SHE CANNOT RECALL THE ADDRESS WHERE SHE WAS TAKEN FROM BY THE AMBULANCE WHICH BROUGHT HER HERE. THE ADDRESS ON FILE PER PATIENT IS AN OLD INFORMATION. SHE WAS INSISTING THAT THE AMBULANCE THAT TOOK HER HERE HAS THE ADDRESS THAT SHE IS CURRENTLY STAYING AT. CALLED E.R, NO FILE FROM THE AMBULANCE WHO BROUGHT HER HERE. CALLED ADMISSION, PER ADMISSION EVERYTHING IS FORWARDED IN MEDICAL RECORDS. DISCUSSED WITH PATIENT THAT MEDICAL RECORDS IS NOT AVAILABLE TODAY. REFERRED TO MACHINE JOINT CUTTER, BUT PATIENT REFUSED TO WAIT FOR MACHINE JOINT CUTTER. PATIENT SIGNED THE HOMELESS WAIVER FORM, RESOURCES REGARDING FACILITIES WHICH CAN HELP HER WERE ALSO GIVEN.
--- NOTE | 2022-01-06 13:05 | NUR ---
RN NOTES PATIENT INSIST ON LEAVING. PATIENT TOLD NURSE SHE WILL BE PICKED UP BY HER FRIEND AND WILL JUST LOOK FOR THE PLACE WHERE SHE WAS TAKEN FROM BY THE AMBULANCE. REINFORCED ASSISTANT BRANCH MANAGER, BUT PATIENT ADAMANTLY REFUSED. RISK DISCUSSED BUT STILL INSISTING O LEAVE WITHOUT SOCIAL SERVICE CONSULT. MD AND CHARGE NURSE AWARE.
--- NOTE | 2022-01-06 13:06 | NUR ---
ACADEMIC RECORDS SPECIALIST NOTES DISCHARGED PATIENT IN STABLE CONDITION, VITAL SIGNS WITHIN NORMAL LIMITS. HOME MEDICATIONS AND FOLLOW UP DISCUSSED WITH THE PATIENT, VERBALIZED UNDERSTANDING. IV ACCESS REMOVED, COVERED WITH GAUZE, NO BLEEDING NOTED. BELONGINGS ACCOUNTED AND SIGNED FOR. WHEELED PATIENT DOWN TO LOBBY ACCOMPANIED BY MARCIA (PCT). PATIENT WAS PICKED UP BY A FRIEND. REFUSED TO PROVIDE FRIEND'S NAME. LEFT UNIT IN STABLE CONDITION. MD AND CHARGE NURSE AWARE OF DISCHARGE.
== END 2022-01-06 13:00 | disposition home or self-care (01) | DRG 420 ==
LOC: ER 14:27 → ICU 18:22 → MED 01-05 10:44
PROVIDERS: ADMIT Internal Medicine; ATTEND Internal Medicine
DX: E10.10 Type 1 diabetes mellitus with ketoacidosis without coma (principal); N17.0 Acute kidney failure with tubular necrosis; E44.1 Mild protein-calorie malnutrition; Z79.4 Long term (current) use of insulin; Z20.822 Contact with and (suspected) exposure to COVID-19; E10.42 Type 1 diabetes mellitus with diabetic polyneuropathy; F32.A Depression, unspecified; G43.909 Migraine, unspecified, not intractable, without status migrainosus; Z79.899 Other long term (current) drug therapy; E87.1 Hypo-osmolality and hyponatremia; E86.1 Hypovolemia; F19.11 Other psychoactive substance abuse, in remission; E88.09 Other disorders of plasma-protein metabolism, not elsewhere classified; Z87.891 Personal history of nicotine dependence; Z98.891 History of uterine scar from previous surgery; Z59.00 Homelessness unspecified
CPT/HCPCS: 36415; 80048-TC; 80076-TC; 81001; 82010-TC; 82962-TC; 83605-TC; 83690-TC; 83735-TC; 84100-TC; 84484-TC; 84703-TC; 85025-TC; 87040-TC; 87081-TC; 87086-TC; C9803; G0378; J1815; J2405; J3490; J7030

== ENCOUNTER 2022-01-19 16:01 | Emergency (ER) | payer OTHER ==
[~2022-01-19] VITALS: Ht 167.6 cm; Wt 49.4 kg
--- NOTE | 2022-01-19 16:10 | NUR ---
IV CANNULA G20 INSERTED ON LEFT FA. BLOOD DRAWN AND SENT TO LAB
--- NOTE | 2022-01-19 16:10 | NUR ---
vitor, from detox rehab, high blood sugar, took 11 units 2 hrs VETERINARY SURGEON with pale skin color. Placed comfortably in bed. Vitals checked. BS- HI. Dr. Jaimes made aware.
--- NOTE | 2022-01-19 16:10 | NUR ---
ACCUCHECK DONE.BS-HI. DR FELIX MADE AWARE
--- NOTE | 2022-01-19 16:15 | NUR ---
ATTACHED TO MONITOR
[2022-01-19] MEDS ORDERED: INSULIN REGULAR, HUMAN 100 UNIT/ML 10 ML VIAL IV ONE (16:30)
[2022-01-19] MEDS ORDERED: IV NS 0.9% 1,000 ML BAG IV ONE ×2 (16:30→18:30)
[2022-01-19 16:32] LABS: BASOPHILS # (AUTO) 0.1 K/uL (0.0-0.2); BASOPHILS % (AUTO) 1.2 % (0.0-2.0); HEMATOCRIT 33 % (33-45); HEMOGLOBIN 9.6 g/dL (11.5-14.8); LYMPHOCYTES # (AUTO) 1.5 K/uL (0.8-4.8); LYMPHOCYTES % (AUTO) 26.8 % (20.0-44.0); MEAN CORPUSCULAR HGB CONC 29 g/dl (31.0-36.0); MEAN CORPUSCULAR VOLUME 82 fL (82-100); MONOCYTES # (AUTO) 0.3 K/uL (0.1-1.30); MONOCYTES % (AUTO) 5.5 % (2.0-12.0); NEUTROPHILS # (AUTO) 3.6 K/uL (1.8-8.9); NEUTROPHILS % (AUTO) 65.5 % (43.0-81.0); PLATELET COUNT (AUTO) 495 K/uL (150-450); RED BLOOD CELL COUNT(AUTO) 4.09 MIL/uL (4.0-5.2); WHITE BLOOD COUNT (AUTO) 5.5 K/uL (4.3-11.0)
[2022-01-19] MEDS ORDERED: INSULIN REGULAR, HUMAN 100 UNIT/ML 10 ML VIAL ONE (16:38)
[2022-01-19 17:23] LABS: CALCIUM, SERUM 8.9 mg/dL (8.5-10.1); CREATININE 0.8 mg/dL (0.6-1.3); MAGNESIUM 1.8 mg/dL (1.8-2.4); PHOSPHORUS 4.7 mg/dL (2.5-4.9)
--- NOTE | 2022-01-19 17:55 | NUR ---
ACCUCHECK DONE AFTER 1 HR OF GIVING INSULIN. BS 348mg/dl. DR FELIX MADE AWARE
--- NOTE | 2022-01-19 18:27 | NUR ---
RESTAURANT CULINARY MANAGER AT BEDSIDE
[2022-01-19 19:19] LABS: CALCIUM, SERUM 7.9 mg/dL (8.5-10.1); CREATININE 0.6 mg/dL (0.6-1.3); POTASSIUM 4.1 mmol/L (3.5-5.1)
[2022-01-19 19:23] LABS: MAGNESIUM 1.5 mg/dL (1.8-2.4)
--- NOTE | 2022-01-19 19:47 | NUR ---
LATEST ACCUCHECK BS 231mg/dl, DR FELIX MADE AWARE
--- NOTE | 2022-01-19 20:30 | NUR ---
CALLED FACILITY, SPOKE TO MARIIA. HE SAID NOBODY CAN SCHEDULE MANAGER PATIENT. IF WE CAN ARRANGE TRANSPORTATION FOR HER. PATIENT MADE AWARE. DIRECTOR OF OPERATIONS HOME HEALTH ARRANGING FOR TRANSPO.
--- NOTE | 2022-01-19 20:32 | NUR ---
[facility] BLS WILL TRANSPORT PT IN 45 MINS.
[2022-01-19 21:04] LABS: MAGNESIUM 1.6 mg/dL (1.8-2.4)
--- NOTE | 2022-01-19 21:15 | NUR ---
REPORT GIVEN TO [facility] UNIT 260 WITH RUN NUMBER [id number] (KENDRICK). MR CHIANG MADE AWARE.
--- NOTE | 2022-01-19 21:32 | NUR ---
Patient discharged to home in stable condition. Written and verbal after care instructions given. Patient verbalizes understanding of instruction.
--- NOTE | 2022-01-19 21:32 | NUR ---
IV CANNULA REMOVED
[2022-01-19 21:33] VITALS: BP 114/61
== END 2022-01-19 21:34 ==
LOC: ER 16:02
DX: E10.65 Type 1 diabetes mellitus with hyperglycemia (principal); F32.A Depression, unspecified; G43.909 Migraine, unspecified, not intractable, without status migrainosus; Z86.69 Personal history of other diseases of the nervous system and sense organs; Z60.2 Problems related to living alone; Z79.4 Long term (current) use of insulin; Z79.899 Other long term (current) drug therapy
CPT/HCPCS: 36415; 80048 ×2; 82962 ×3; 83735 ×3; 84100 ×3; 85025; 96361; 96374; 99283; J1815; J7030 ×2

== ENCOUNTER 2022-02-02 19:39 | Emergency (ER) | payer OTHER ==
[~2022-02-02] VITALS: Ht 165.1 cm; Wt 61.2 kg
--- NOTE | 2022-02-02 19:49 | NUR ---
[id number] FROM HOME C/O "MID EPIGASTRIC BURNING" UNRELIEVED BY TUMS X1DAY. PATIENT HAS HX OF GERD. HAD 1 EPISODE OF VOMITTING TODAY. PATIENT IS ALERT AND ORIENTED X3. AMBULATORY WITH NON LABORED BREATHING IN BED 04 ON MONITOR AWAITING MD MARTIN.
[2022-02-02] MEDS ORDERED: OMEPRAZOLE 20 MG CAPSULE.DR PO STA (19:52)
[2022-02-02] MEDS ORDERED: ONDANSETRON 4 MG TAB.RAPDIS ONE ×2 (19:59→21:25)
[2022-02-02] MEDS ORDERED: ONDANSETRON 4 MG TAB.RAPDIS SL ONE ×2 (20:00→21:30)
--- NOTE | 2022-02-02 20:04 | NUR ---
LAB AT BEDSIDE
--- NOTE | 2022-02-02 20:15 | NUR ---
URINE SAMPLE COLLECTED AND SENT TO LAB
[2022-02-02] MEDS ORDERED: PANTOPRAZOLE 40 MG TABLET.DR PO ONE ×2 (20:49→21:00)
[2022-02-02 20:56] LABS: BASOPHILS # (AUTO) 0.1 K/uL (0.0-0.2); BASOPHILS % (AUTO) 0.7 % (0.0-2.0); HEMATOCRIT 36 % (33-45); HEMOGLOBIN 10.8 g/dL (11.5-14.8); LYMPHOCYTES # (AUTO) 1.7 K/uL (0.8-4.8); LYMPHOCYTES % (AUTO) 22.8 % (20.0-44.0); MEAN CORPUSCULAR HGB CONC 30 g/dl (31.0-36.0); MEAN CORPUSCULAR VOLUME 80 fL (82-100); MONOCYTES # (AUTO) 0.6 K/uL (0.1-1.30); MONOCYTES % (AUTO) 7.8 % (2.0-12.0); NEUTROPHILS % (AUTO) 67.7 % (43.0-81.0); PLATELET COUNT (AUTO) 484 K/uL (150-450); RED BLOOD CELL COUNT(AUTO) 4.54 MIL/uL (4.0-5.2); WHITE BLOOD COUNT (AUTO) 7.4 K/uL (4.3-11.0)
[2022-02-02 21:09] LABS: BILIRUBIN,URINE SMALL (NEGATIVE); COLOR,URINE YELLOW (YELLOW); LEUKOCYTE ESTERASE ,URINE NEGATIVE (NEGATIVE); NITRITE, URINE NEGATIVE (NEGATIVE); PH,URINE 5.5 (5.0-8.0); PROTEIN,URINE NEGATIVE (NEGATIVE); UGLUCOSE 500 MG/DL mg/dL (NEGATIVE); UROBILINOGEN,URINE 0.2 EU/dL (0.2)
[2022-02-02 22:25] LABS: BAND % (MANUAL) 1 % (0.0-5.0); LYMPHOCYTES % (MANUAL) 21 % (16-48); MONOCYTES % (MANUAL) 7 % (0-11.0); NEUTROPHILS % (MANUAL) 71 (42-76)
[2022-02-02] MEDS ORDERED: ONDA4TAB11 PO (22:30)
[2022-02-02] MEDS ORDERED: OMEP20CA15 PO (22:30)
[2022-02-02 22:48] LABS: ALBUMIN 3.4 g/dL (3.4-5.0); BILIRUBIN,DIRECT 0.1 mg/dL (0.0-0.2); BILIRUBIN,TOTAL 0.5 mg/dL (0.2-1.0); CALCIUM, SERUM 9.4 mg/dL (8.5-10.1); CREATININE 0.7 mg/dL (0.6-1.3); POTASSIUM 4.4 mmol/L (3.5-5.1); TOTAL PROTEIN, SERUM 7.5 g/dL (6.4-8.2)
--- NOTE | 2022-02-02 23:28 | NUR ---
RT NOTE PT REFUSED ABG @ THIS TIME. DR. SCHULTE AWARE.
--- NOTE | 2022-02-03 00:16 | NUR ---
ETA FOR PICKUP IS 30 MINS
--- NOTE | 2022-02-03 00:55 | NUR ---
APA ARRIVED FOR PT HEALTHCARE MARKET CONSULTANT
--- NOTE | 2022-02-03 00:55 | NUR ---
Patient discharged to home in stable condition. Written and verbal after care instructions given. Patient verbalizes understanding of instruction.
[2022-02-03 00:56] VITALS: BP 125/91
== END 2022-02-03 00:56 | disposition home or self-care (01) ==
LOC: ER 19:43
DX: R10.13 Epigastric pain (principal); K21.9 Gastro-esophageal reflux disease without esophagitis; E10.8 Type 1 diabetes mellitus with unspecified complications; F32.A Depression, unspecified; G43.909 Migraine, unspecified, not intractable, without status migrainosus; Z86.69 Personal history of other diseases of the nervous system and sense organs; Z60.2 Problems related to living alone; Z79.899 Other long term (current) drug therapy
CPT/HCPCS: 36415; 80048; 80076; 81003; 82010; 83690; 84703; 85007; 85025; 99284; Q0162 ×2

== ENCOUNTER 2022-04-11 15:42 | Inpatient (IN) | payer OTHER ==
[~2022-04-11] VITALS: Ht 160 cm; Wt 47.8 kg
[~2022-04-11 15:42] MED LIST changes: +OMEP20CA15 PO; +ONDA4TAB11 PO
--- NOTE | 2022-04-11 15:52 | NUR ---
pt bibra from [facility] c/o generalized weakness, lethargy all day today. pt is a type 1 diabetic. 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 awaiting md oakes.
--- NOTE | 2022-04-11 16:40 | NUR ---
rodger holland at bedside for eval.
[2022-04-11] MEDS ORDERED: IV NS 0.9% 1,000 ML BAG IV ONE ×2 (17:00→19:00)
[2022-04-11 17:19] LABS: BASOPHILS # (AUTO) 0.1 K/uL (0.0-0.2); BASOPHILS % (AUTO) 0.9 % (0.0-2.0); EOSINOPHILS % (AUTO) 0.4 % (0.0-6.0); HEMATOCRIT 37 % (33-45); HEMOGLOBIN 11.1 g/dL (11.5-14.8); LYMPHOCYTES # (AUTO) 1.7 K/uL (0.8-4.8); LYMPHOCYTES % (AUTO) 25.8 % (20.0-44.0); MEAN CORPUSCULAR HGB CONC 30 g/dl (31.0-36.0); MEAN CORPUSCULAR VOLUME 72 fL (82-100); MONOCYTES # (AUTO) 0.5 K/uL (0.1-1.30); MONOCYTES % (AUTO) 7.4 % (2.0-12.0); NEUTROPHILS # (AUTO) 4.3 K/uL (1.8-8.9); NEUTROPHILS % (AUTO) 65.5 % (43.0-81.0); PLATELET COUNT (AUTO) 591 K/uL (150-450); RED BLOOD CELL COUNT(AUTO) 5.14 MIL/uL (4.0-5.2); WHITE BLOOD COUNT (AUTO) 6.6 K/uL (4.3-11.0)
[2022-04-11] MEDS ORDERED: ONDANSETRON HCL/PF 4 MG/2 ML VIAL ONE ×2 (17:21→19:55)
--- NOTE | 2022-04-11 17:23 | NUR ---
pt vomited x1 ham holland made aware. zofran 4mg ivp given. see emar.
[2022-04-11] MEDS ORDERED: ONDANSETRON HCL/PF 4 MG/2 ML VIAL IV ONE (17:30)
[2022-04-11] MEDS ORDERED: RIVA10TA PO (18:02)
[2022-04-11] MEDS ORDERED: INSU100I34 SQ (18:12)
[2022-04-11 18:18] LABS: BAND % (MANUAL) 1 % (0.0-5.0); LYMPHOCYTES % (MANUAL) 27 % (16-48); MONOCYTES % (MANUAL) 4 % (0-11.0); NEUTROPHILS % (MANUAL) 68 (42-76)
[2022-04-11 19:12] LABS: CALCIUM, SERUM 9.9 mg/dL (8.5-10.1); CARBON DIOXIDE 17 mmol/L (21-32); CHLORIDE 91 mmol/L (98-107); CREATININE 0.8 mg/dL (0.6-1.3); GLUCOSE 234 mg/dL (74-106); SODIUM SERUM 130 mmol/L (136-145); UREA NITROGEN, BLOOD 25 mg/dL (7-18)
[2022-04-11 19:17] LABS: ALANINE AMINOTRANSFERASE 21 U/L (12-78); ALBUMIN 3.7 g/dL (3.4-5.0); ALKALINE PHOSPHATASE 166 U/L (46-116); ASPARTATE AMINOTRANSFERASE 12 U/L (15-37); BILIRUBIN,DIRECT 0.1 mg/dL (0.0-0.2); BILIRUBIN,TOTAL 0.4 mg/dL (0.2-1.0); LIPASE 121 U/L (73-393)
[2022-04-11] MEDS ORDERED: IV PREMIX NS +20MEQ KCL 1,000 L IV PRN (19:30)
[2022-04-11] MEDS ORDERED: INSULIN REGULAR, HUMAN 100 UNITS in IV NS 0.9% 100 ML IV PRN ×2 (19:30)
[2022-04-11 19:44] LABS: ABG BASE EXCESS -11.3 mmol/L; ABG PCO2 30.6 mmHg (35.0-45.0); ABG PH 7.282 (7.350-7.450); ABG PO2 31.6 mmHg (75.0-100.0); COHb 0.5 % (0.5-1.5); MetHb 0.5 % (0.0-1.5); O2Hb 54.3 % (94.0-97.0); SITE, ABG Other; VENT MODE, BG RA
[2022-04-11] MEDS ORDERED: INSULIN REGULAR, HUMAN 100 UNIT/ML 10 ML VIAL ONE (19:55)
[2022-04-11 20:00] LABS: CALCIUM, SERUM 8.8 mg/dL (8.5-10.1); CREATININE 0.8 mg/dL (0.6-1.3); POTASSIUM 4.5 mmol/L (3.5-5.1)
--- NOTE | 2022-04-11 20:00 | NUR ---
INSULIN DRIP STARTED VIA IV PUMP AT 6.06, R WRIST 22G. [id number]. WILL CONTINUE TO MONITOR
[2022-04-11 20:04] LABS: MAGNESIUM 1.9 mg/dL (1.8-2.4)
[2022-04-11] MEDS: IV PREMIX NS +20MEQ KCL 1 L IV PRN (20:30)
--- NOTE | 2022-04-11 20:41 | NUR ---
ROOM 259
[2022-04-11] MEDS ORDERED: MORPHINE SULFATE INJ 2 MG/ML DISP.SYRIN IV PRN (21:00)
[2022-04-11] MEDS ORDERED: ONDANSETRON HCL/PF 4 MG/2 ML VIAL IVP PRN (21:00)
[2022-04-11] MEDS ORDERED: ACETAMINOPHEN 325 MG TABLET PO PRN (21:00)
[2022-04-11] MEDS ORDERED: ONDANSETRON HCL/PF 4 MG/2 ML VIAL IV PRN (21:00)
--- NOTE | 2022-04-11 21:15 | NUR ---
REPORT GIVEN TO ISRAEL ZAVALETA FOR JUSTO
--- NOTE | 2022-04-11 22:00 | NUR ---
RN Note Received a 31 year old female from ER. Patient is alert and oriented, verbally responsive. Lethargic. Breathing even and unlabored. Denies SOB. On room air. On tele monitoring. Patient denies chest pain. Skin is warm and dry to touch. Afebrile. Noted with right wrist 22g and right forearm 22g PIV. Arrived infusing with Potassium 20 MEQ in 1L NS & Insulin at 6.06 units/hr. No infiltration. Skin assessment done. Patient assisted with turning and repositioning. Bed low, in locked position, Call light within reach. Will continue to monitor.
[2022-04-11 22:09] VITALS: BP 109/80
[2022-04-11] MEDS: IV 1/2NS 1000 ML 1,000 ML IV SCH (22:22)
[2022-04-11 22:23] LABS: MAGNESIUM 2.1 mg/dL (1.8-2.4); PHOSPHORUS 4.8 mg/dL (2.5-4.9)
[2022-04-11] MEDS: HEPARIN SODIUM, PORCINE 5000 UNITS/1 ML VIAL SQ SCH (22:23)
[2022-04-11 22:43] LABS: CALCIUM, SERUM 8.1 mg/dL (8.5-10.1); CREATININE 0.7 mg/dL (0.6-1.3); POTASSIUM 4.1 mmol/L (3.5-5.1)
[2022-04-11] MEDS: IV D5/0.45 NACL 1,000 ML IV PRN (22:47)
[2022-04-11 22:49] LABS: ALBUMIN 3.1 g/dL (3.4-5.0); BILIRUBIN,TOTAL 0.3 mg/dL (0.2-1.0); MAGNESIUM 1.7 mg/dL (1.8-2.4); PHOSPHORUS 2.6 mg/dL (2.5-4.9); TOTAL PROTEIN, SERUM 7.4 g/dL (6.4-8.2)
[2022-04-11 22:54] VITALS: BP 131/95
[2022-04-11 23:00] VITALS: BP 139/83
[2022-04-11] MEDS ORDERED: INSULIN REGULAR, HUMAN 100 UNIT/ML 3 ML VIAL SQ PRN (23:00)
[2022-04-11] MEDS ORDERED: DEXTROSE 50%-WATER 50 ML DISP.SYRIN IV PRN (23:00)
--- NOTE | 2022-04-11 23:00 | NUR ---
RN NOTE PER KATE, IF BG IS >200, INFUSE 1/2 NS AT 250 ML/HR. IF BG <200 INFUSE D5 1/2 NS AT 250 ML/HR. AT THIS TIME, LATEST BS IS 133. PATIENT WAS RESTARTED ON D5 1/2 NS AT 250 CC/HR. Addendum: 04/12/22 at 0034 by JERRY PEDRO RN addendum: Per kate, IF CO2 >20 Stop insulin drio and start on moderate sliding scale with q2h accu-chek. also, next CMP to be included with am labs.
--- NOTE | 2022-04-11 23:30 | NUR ---
RN Note Unable to obtain venous blood for ABG, Per MD accessioner, Cancel venous blood gas and do a one time order of ABG at 3 am.
[2022-04-12] VITALS (24 sets, daily range): BP systolic 91–140; BP diastolic 64–105
[2022-04-12] MEDS: BLOOD SUGAR DIAGNOSTIC 1 EACH STRIP IN SCH ×12 (00:24→21:21)
[2022-04-12] MEDS: IV 1/2NS 1000 ML 1,000 ML IV SCH ×2 (01:00→05:00)
[2022-04-12] MEDS: IV PREMIX NS +20MEQ KCL 1 L IV PRN ×2 (01:01→05:07)
[2022-04-12] MEDS ORDERED: INSULIN REGULAR, HUMAN 100 UNIT/ML 3 ML VIAL SQ PRN ×2 (02:00)
[2022-04-12] MEDS: IV D5/0.45 NACL 1,000 ML IV PRN ×2 (02:35→06:00)
--- NOTE | 2022-04-12 03:15 | NUR ---
Pt refused ABG RN notified.
[2022-04-12 05:19] LABS: BASOPHILS % (AUTO) 0.4 % (0.0-2.0); EOSINOPHILS % (AUTO) 0.9 % (0.0-6.0); HEMATOCRIT 33 % (33-45); HEMOGLOBIN 10.1 g/dL (11.5-14.8); LYMPHOCYTES # (AUTO) 1.3 K/uL (0.8-4.8); LYMPHOCYTES % (AUTO) 12.8 % (20.0-44.0); MEAN CORPUSCULAR HGB CONC 30 g/dl (31.0-36.0); MEAN CORPUSCULAR VOLUME 71 fL (82-100); MONOCYTES # (AUTO) 0.7 K/uL (0.1-1.30); MONOCYTES % (AUTO) 6.6 % (2.0-12.0); NEUTROPHILS % (AUTO) 79.3 % (43.0-81.0); PLATELET COUNT (AUTO) 363 K/uL (150-450); RED BLOOD CELL COUNT(AUTO) 4.69 MIL/uL (4.0-5.2); WHITE BLOOD COUNT (AUTO) 10.1 K/uL (4.3-11.0)
[2022-04-12 05:23] LABS: ALBUMIN 2.6 g/dL (3.4-5.0); BILIRUBIN,TOTAL 0.2 mg/dL (0.2-1.0); CALCIUM, SERUM 7.4 mg/dL (8.5-10.1); CREATININE 0.6 mg/dL (0.6-1.3); MAGNESIUM 1.5 mg/dL (1.8-2.4); PHOSPHORUS 2.2 mg/dL (2.5-4.9); POTASSIUM 3.9 mmol/L (3.5-5.1); TOTAL PROTEIN, SERUM 6.4 g/dL (6.4-8.2)
--- NOTE | 2022-04-12 05:49 | NUR ---
RN Note AM CMP relayed to Jairo. New order to D/C insulin drip. New order of Moderate sliding scale with accu-chek every two hours & Full liquids diet. aware that patient refused scheduled 030 ABG. Addendum: 04/12/22 at 0603 by JERRY PEDRO RN 06 Accu-chek non-administered as patient is now accu-chek every two hours. next is 0700.
[2022-04-12] MEDS ORDERED: BLOOD SUGAR DIAGNOSTIC 1 EACH STRIP IN SCH (06:00)
--- NOTE | 2022-04-12 06:24 | NUR ---
RN Note Per Jairo, D/C D5 1/2 NS AT 250 ML/HR. CHANGE 1/2 NS TO 100 ML/HR. CONTINUE 20 MEQ K+ IN 1L/NS AT 250 ML/HR. NEW ORDER NOTED AND CARRIED OUT.
[2022-04-12] MEDS ORDERED: IV 1/2NS 1000 ML 1,000 ML IV SCH (06:30)
[2022-04-12] MEDS ORDERED: DEXTROSE 50%-WATER 50 ML DISP.SYRIN IV PRN (07:00)
--- NOTE | 2022-04-12 07:30 | NUR ---
OPENING NOTE: REPORT RECEIVED FROM JERRY ZAVALETA. ORDERS AND LABS REVIEWED DURING REPORT. PER REPORT PT'S ANION GAP CLOSED AND INSULIN GTT HAS BEEN TURNED OFF. ORDERS TO CONTINUE 1/2 NS AT 100ML/HR AND NS W/20K AT 250ML/HR PER DR RAMOS. Q2H ACCUCHECKS WITH SLIDING SCALE ORDERED. PT CHECKED ON HOURLY AND PRN BY NURSING STAFF.
[2022-04-12] MEDS ORDERED: IV PREMIX NS +20MEQ KCL 1 L IV SCH (09:30)
[2022-04-12] MEDS: Magnesium 1GM/D5W 100ML PREMIX 100 ML IV SCH ×3 (09:40→12:14)
[2022-04-12] MEDS: HEPARIN SODIUM, PORCINE 5000 UNITS/1 ML VIAL SQ SCH (09:41)
[2022-04-12] MEDS ORDERED: IV 1/2NS 1000 ML 1,000 ML IV PRN (10:20)
--- NOTE | 2022-04-12 10:31 | NUR ---
BLOOD GLUCOSE CHECK AT 0930 WAS 37, PT WAS ALERT OX3, REFUSED D50 IVP, DRANK 2 APPLE JUICES AND ATE BREAKFAST TRAY. RECHECK AT 0945 WAS 48, PT STILL REFUSING D50 IVP, STATES SHE DOESN'T LIKE THE WAY IT MAKES HER FEEL. PT DRANK 1 ORANGE JUICE AND 1 APPLE JUICE. RECHECK AT 1000 WAS 69, PT DRANK 1 APPLE JUICE AND ATE 1 CHOCOLATE PUDDING RUSLAN PROFESSOR OF ART AT BEDSIDE AROUND 1015, UPDATED ON BLOOD GLUCOSE RESULTS. ORDERS GIVEN TO CHANGE IVF, KEEP BLOOD GLUCOSE CHECKS Q2H TILL BLOOD GLUCOSE CONSISTENTLY STABLE. NO ADVANCING DIET FROM FULL LIQUID TILL BLOOD GLUCOSE UNDER CONTROL PER RUSLAN PROFESSOR OF ART.
--- NOTE | 2022-04-12 10:38 | NUR ---
BLOOD GLUCOSE RECHECK AT 1020 WAS 143. NEXT BLOOD SUGAR CHECK WILL BE AT 1200.
[2022-04-12] MEDS ORDERED: Sodium Phosphate 15 MMOL in IV NS 0.9% 245 ML IV SCH (11:00)
[2022-04-12] MEDS: IV PREMIX D5 1/2NS + KCL 1,000 ML IV SCH ×3 (11:44→20:35)
[2022-04-12] MEDS: INSULIN REGULAR, HUMAN 100 UNIT/ML 3 ML VIAL SQ PRN ×4 (11:46→21:25)
[2022-04-12] MEDS ORDERED: IV NS 0.9% 250 ML IV PRN (12:00)
[2022-04-12] MEDS: PANTOPRAZOLE 40 MG TABLET.DR PO SCH (13:08)
[2022-04-12] MEDS: MAG HYDROX/AL HYDROX/SIMETH 30 ML UDC PO PRN ×2 (14:17→22:01)
--- NOTE | 2022-04-12 15:00 | NUR ---
SS consult: SS Consult requested for homelessness. The pt. is a 31-year-old Black female patient who was admitted to ICU due to DKA. Upon SS consult, the pt. is Alert & Oriented x 4 and makes good eye contact. The pt. appears well-groomed with irritable mood & affect. Pt. is guarded and refused to provide much information. The pt. denies SI/HI and denies hallucinations. The pt.s speech and thought process are WNL. MARIANNA explored pt.s living situation. Patient states she is currently living in Transitional Housing [[address]! [place] [place] [address]; [phone]]. SW explored pt.s drug & ETOH use. Pt. refused to disclose. SW explored pt.s mental health Hx. Pt. refused to disclose. Per pt. she is normally ambulatory and independent with all her ADLs. SW explored pt.s support system. Pt. refused to provide contact information. Plan: Per pt. she plans to return to her Transitional Housing [[address] it! [place] [address]; [phone]]. Pt. refused TAP card and stated that maybe she can have her uncle pick her up. Pt. was provided with homeless resources and pt. refused them. Pt. refused to sign homeless waiver and it was placed in the pt.s chart. MARIANNA offered pt. the following resources: Year-round shelters: [facility] [address] [place] [address] ; [facility] [address] [place] [address]; [facility] [facility] [address] [facility] [address] Hygiene: [facility]: [address]. [place] ; [place] [facility] [address] [facility] ; [facility] [address] . Food Resources: [place] [facility] at [facility]- [address]; Meet Each Need with Dignity ([facility]) [address] [place]; [facility] [address] [place] [facility]; [facility] [address] [place]. Mental Health resources provided: [facility] [address] [place], [place] [id number] ; [facility] [address] [facility] [address], [place] [address] ; [facility] [address] [place], [place] [id number] ; [facility] [address] [place], [place] [phone] Healthcare Clinics: [facility] [address] [facility], [address] [place]. [place] ; [facility] [address] [facility] [address] [place] [address]; [place] [address] [facility] [place] [address] [phone] Counseling--Outpatient [facility] [place] [address], [place] [address] (Specializes in in-depth psychotherapy for emotional distress: anxiety, depression, interpersonal conflicts, life transitions, childhood abuse) [facility] [address] [place] [address] (Assist with solving problem marital difficulties, separation & divorce, aging parents, & grief, chronic & terminal illness) [facility] [address] [place] [address] (Deal with loss & grief, anxiety, marital difficulties) Homebound/Mental Health Services [address] [facility], [address] [place], [place] [id number] (Provide in-home mental services to people who are incapable of leaving their homes) [facility] Elderly Senior Service/Resource Center [address] [place] [address] [facility] [address] [facility] [place] [address] PSYCHIATRIC OUTPATIENT SERVICES [facility] Partial Hospitalization and Intensive Outpatient Program (Managed Care and [place] Only)[address] [facility] [phone] [facility] Partial Hospitalization and Outpatient [address] [place], [place] [phone] [facility] [address] [address] [place], [place] [phone] [facility] Partial Hospitalization and Outpatient [id number] Psychiatric Centerevan, [phone] Substance Abuse resources provided included: [facility] Substance Abuse Self-Helpline ([facility]) ; [facility] [address] [facility] [place]. [place] [address] ; [facility] [address] [facility] [address] ; [facility] [address] [facility] [address] [address] ; [facility] [address] [facility] [phone] ; [facility] [address] [facility] [address] ; [facility] [address] [facility] [address] ; [facility] Substance Abuse Helpline([facility])-[facility] ; [facility] ; [facility] [place]; [facility] [place]; [facility] [place]; [facility] Jose Cruz Molinaevan; [facility]; [facility]; [facility] [place]; [facility], [facility]. Regina Soheila; Alcoholics Anonymous [facility]; [place]renice ; Marijuana Anonymous [facility]; Narcotics Anonymous [email or web address].Stand [email or web address]; Addendum: 04/12/22 at 1507 by DAMARI CABRAL Pt. signed homeless waiver and it was placed in the chart.
--- NOTE | 2022-04-12 20:00 | NUR ---
ICU NOTES Patient awake alert and oriented x4.DX: DKA Vital signs stable.ST 107-109.Respiration even and unlabored on RA saturation 99%-100%.IVF D51/2 NS+20 meq KCL infusing at 200 ml/hr as ordered. Site intact.Blood sugar will be monitored Q 4 hrs with SS.Patient independent with ADL minimal assistance.Safety precaution maintained.Call light at bedside.
[2022-04-12] MEDS ORDERED: INSULIN GLARGINE, 100 UNIT/ML CARTRIDGE SQ SCH (22:00)
[2022-04-13] VITALS (16 sets, daily range): BP systolic 84–123; BP diastolic 47–89
--- NOTE | 2022-04-13 | NUR ---
ICU NOTES Patient resting complaints of stomach upset was medicated and verbalized relief.
[2022-04-13] MEDS: BLOOD SUGAR DIAGNOSTIC 1 EACH STRIP IN SCH ×5 (01:04→17:01)
[2022-04-13] MEDS: INSULIN REGULAR, HUMAN 100 UNIT/ML 3 ML VIAL SQ PRN ×5 (01:06→16:54)
[2022-04-13] MEDS: IV PREMIX D5 1/2NS + KCL 1,000 ML IV SCH ×3 (01:11→11:16)
[2022-04-13 05:16] LABS: BASOPHILS % (AUTO) 0.2 % (0.0-2.0); EOSINOPHILS % (AUTO) 0.4 % (0.0-6.0); HEMATOCRIT 26 % (33-45); HEMOGLOBIN 8.1 g/dL (11.5-14.8); LYMPHOCYTES # (AUTO) 1.4 K/uL (0.8-4.8); MEAN CORPUSCULAR HGB CONC 31 g/dl (31.0-36.0); MEAN CORPUSCULAR VOLUME 71 fL (82-100); MONOCYTES # (AUTO) 0.7 K/uL (0.1-1.30); MONOCYTES % (AUTO) 10.7 % (2.0-12.0); NEUTROPHILS # (AUTO) 4.6 K/uL (1.8-8.9); NEUTROPHILS % (AUTO) 67.7 % (43.0-81.0); PLATELET COUNT (AUTO) 365 K/uL (150-450); RED BLOOD CELL COUNT(AUTO) 3.69 MIL/uL (4.0-5.2); WHITE BLOOD COUNT (AUTO) 6.7 K/uL (4.3-11.0)
[2022-04-13 05:24] LABS: CALCIUM, SERUM 7.5 mg/dL (8.5-10.1); CREATININE 0.5 mg/dL (0.6-1.3); MAGNESIUM 2.2 mg/dL (1.8-2.4); PHOSPHORUS 2.1 mg/dL (2.5-4.9); POTASSIUM 4.3 mmol/L (3.5-5.1)
--- NOTE | 2022-04-13 06:20 | NUR ---
END NOTE Patient resting.ST 106-110.BP is at mid 80's systolic while sleeping but goes up to 100's when awake.Per patient that is normal for her.Remains asymptomatic.With good appetite.IVF infusing well.Blood sugar trending down coverage given per sliding scale.Refused bath and am care.Needs attended.
--- NOTE | 2022-04-13 07:15 | NUR ---
RN OPENING NOTE PATIENT RESTING IN BED, A/OX3 ON ROOM AIR 02 SAT 97%. NO CURRENT COMPLAINTS OF SOB OR PAIN. CURRENTLY RUNNING D5 1/2 NS + KCL AT 200MLS/HR. SAFETY MEASURES IN PLACE, CALL LIGHT WITHIN REACH BED ALARM ACTIVATED BED LOCKED IN THE LOWEST POSITION WITH 2 SIDE RAILS UP.
[2022-04-13] MEDS: PANTOPRAZOLE 40 MG TABLET.DR PO SCH (08:05)
[2022-04-13] MEDS ORDERED: K PHOS NEUTRAL 250 MG TABLET PO ONE (08:30)
[2022-04-13] MEDS ORDERED: RIVAROXABAN 10 MG TABLET PO SCH (09:00)
--- NOTE | 2022-04-13 11:50 | NUR ---
RN NOTE RECIEVED ORDERS FROM TAMIKO Ya NP TO CHANGE PATIENTS IV FLUIDS TO NS 0.9% 125MLS/HR. AND DOWN GRADE PATIENT. ORDERS PLACED.
[2022-04-13] MEDS ORDERED: IV NS 0.9% 1,000 ML IV PRN (12:00)
--- NOTE | 2022-04-13 17:00 | NUR ---
RN NOTE REMINDED PATIENT SHE NEEDS TO PROVIDE A URINE SAMPLE, PATIENT STATED " I DONT HAVE TO PEE, MAYBE LATER" REMINDED THE PATIENT OF THE IMPORTANCE OF PROVIDING A URINE SAMPLE.
--- NOTE | 2022-04-13 17:39 | NUR ---
RN NOTE PER TAMIKO Ya NP. PATIENT OKAY TO BE DISCHARGED. ORDER PLACED.
--- NOTE | 2022-04-13 18:00 | NUR ---
RN NOTE REMINDED PATIENT TO GIVE A URINE SAMPLE, PER PATIENT " I DONT WANT TO DO ANY MORE TESTING I JUST WANT TO GO HOME, I HAVE BEEN IN DKA BEFORE I KNOW WHAT TO DO". REMINDED PATIENT THE IMPORTANCE OF URINE SAMPLE, PATIENT REFUSED AGAIN. WILL INFOMR PROVIDER.
--- NOTE | 2022-04-13 18:21 | NUR ---
RN NOTE PER PROVIDER , TAMIKO Ya NP PATIENT OKAY TO GO HOME, DISCHARGE ORDER PLACED PATIENT EDUCATION, LABS PROGRESS NOTE PRINTED AND GIVEN TO PATIENT.
--- NOTE | 2022-04-13 18:32 | NUR ---
RN NOTE PATIENTS IV REMOVED AND HOSPITAL BAN NO COMPLICATIONS. PATIENT REMINDED TO FOLLOW UP WIT PCP. PER PATIENT "I WILL SCHEDULE A APPOINTMENT, I HAVE BEED IN DKA BEFORE AND I ALREADY KNOW WHAT TO DO" . PATIENT WALKED OUT TO THE LOBBY PICKED UP MY FAMILY MEMEBER.
[2022-04-13] MEDS ORDERED: RIVA10TA PO (18:41)
[2022-04-13] MEDS ORDERED: INSU100V7 SQ (18:41)
== END 2022-04-13 18:45 | disposition home or self-care (01) | DRG 420 ==
LOC: ER 15:45 → ICU 20:49
PROVIDERS: ADMIT Internal Medicine; ATTEND Registered Nurse
DX: E10.10 Type 1 diabetes mellitus with ketoacidosis without coma (principal); E10.40 Type 1 diabetes mellitus with diabetic neuropathy, unspecified; D50.9 Iron deficiency anemia, unspecified; F12.20 Cannabis dependence, uncomplicated; E87.1 Hypo-osmolality and hyponatremia; F32.A Depression, unspecified; Z20.822 Contact with and (suspected) exposure to COVID-19; G43.909 Migraine, unspecified, not intractable, without status migrainosus; Z79.4 Long term (current) use of insulin; Z79.01 Long term (current) use of anticoagulants; Z98.891 History of uterine scar from previous surgery; Z87.891 Personal history of nicotine dependence; Z59.00 Homelessness unspecified; Z91.14 Patient's other noncompliance with medication regimen
CPT/HCPCS: 36415; 36600; 71045-TC; 80048-TC; 80053-TC; 80076-TC; 82010-TC; 82803-TC; 82962-TC; 83605-TC; 83690-TC; 83735-TC; 84100-TC; 84484-TC; 84702-TC; 85025-TC; 87040-TC; 87081-TC; 94799-TC; A9563; C9803; G0378; J1644; J1815; J2405; J3475; J3490; J7030; J7042; J7050

== ENCOUNTER 2022-05-10 23:11 | Inpatient (IN) | payer OTHER ==
[~2022-05-10] VITALS: Ht 170.2 cm; Wt 56.7 kg
[~2022-05-10 23:11] MED LIST changes: -ESCI10TA PO; +INSU100I34 SQ; -OMEP20CA15 PO; -ONDA4TAB11 PO; +RIVA10TA PO
--- NOTE | 2022-05-10 23:20 | NUR ---
[id number] FROM HOME C/O "FEELING MORE LETHARGIC" BLOOD GLUCOSE 590 PER EMS. PATIENT ALERT AND ORIENTED X4. AMBULATORY WITH NON LABORED BREAHTHING IN BED 11 ON MONITOR AND POX AWAITING MD MARTIN.
[2022-05-10] MEDS ORDERED: IV NS 0.9% 1,000 ML BAG IV ONE (23:30)
--- NOTE | 2022-05-10 23:49 | NUR ---
ER PRIVACY ANALYST @BEDSIDE
[2022-05-11] VITALS (18 sets, daily range): BP systolic 106–151; BP diastolic 71–115
[2022-05-11 00:06] LABS: BASOPHILS % (AUTO) 0.6 % (0.0-2.0); EOSINOPHILS % (AUTO) 0.9 % (0.0-6.0); HEMATOCRIT 36 % (33-45); HEMOGLOBIN 9.6 g/dL (11.5-14.8); LYMPHOCYTES # (AUTO) 1.1 K/uL (0.8-4.8); MEAN CORPUSCULAR HGB CONC 27 g/dl (31.0-36.0); MEAN CORPUSCULAR VOLUME 76 fL (82-100); MONOCYTES # (AUTO) 0.4 K/uL (0.1-1.30); MONOCYTES % (AUTO) 6.5 % (2.0-12.0); NEUTROPHILS # (AUTO) 4.5 K/uL (1.8-8.9); PLATELET COUNT (AUTO) 449 K/uL (150-450)
[2022-05-11 00:21] LABS: ALBUMIN 3.2 g/dL (3.4-5.0); BILIRUBIN,DIRECT 0.1 mg/dL (0.0-0.2); BILIRUBIN,TOTAL 0.5 mg/dL (0.2-1.0); CALCIUM, SERUM 8.6 mg/dL (8.5-10.1); CREATININE 0.9 mg/dL (0.6-1.3); TOTAL PROTEIN, SERUM 7.7 g/dL (6.4-8.2)
--- NOTE | 2022-05-11 00:28 | NUR ---
CRITICAL LABS CO2- 9 GLUCOSE- 395
[2022-05-11] MEDS ORDERED: INSULIN REGULAR, HUMAN 100 UNIT/ML 10 ML VIAL ONE (00:39)
--- NOTE | 2022-05-11 00:50 | NUR ---
PT REFUSED ABG, DR SCHULTE NOTIFIED.
--- NOTE | 2022-05-11 00:51 | NUR ---
INSULIN DRIP STARTED AT 5 UNITS/HR
[2022-05-11] MEDS ORDERED: INSULIN REGULAR, HUMAN 100 UNIT in IV NS 0.9% 99 ML IV PRN ×4 (01:00→02:30)
--- NOTE | 2022-05-11 01:05 | NUR ---
URINE COLLECTED SENT TO LAB
[2022-05-11 01:36] LABS: BILIRUBIN,URINE NEGATIVE (NEGATIVE); COLOR,URINE YELLOW (YELLOW); LEUKOCYTE ESTERASE ,URINE NEGATIVE (NEGATIVE); NITRITE, URINE NEGATIVE (NEGATIVE); PH,URINE 6.5 (5.0-8.0); PROTEIN,URINE NEGATIVE (NEGATIVE); UGLUCOSE NEGATIVE (NEGATIVE); UROBILINOGEN,URINE 0.2 EU/dL (0.2)
[2022-05-11] MEDS ORDERED: MAG HYDROX/AL HYDROX/SIMETH 30 ML UDC ONE (01:52)
[2022-05-11] MEDS ORDERED: LIDOCAINE VISCOUS 2% UD 15 ML UDC ONE (01:52)
--- NOTE | 2022-05-11 01:59 | NUR ---
BS 160
[2022-05-11] MEDS ORDERED: LIDOCAINE VISCOUS 2% UD 15 ML UDC MM ONE (02:00)
[2022-05-11] MEDS ORDERED: MAG HYDROX/AL HYDROX/SIMETH 30 ML UDC PO ONE (02:00)
[2022-05-11] MEDS ORDERED: IV NS 0.9% 1,000 ML BAG IV ONE (02:00)
--- NOTE | 2022-05-11 02:25 | NUR ---
REPORT GIVEN TO MEGHANN SILVESTRE
[2022-05-11] MEDS ORDERED: IV NS 0.9% 1,000 ML IV SCH (02:30)
[2022-05-11] MEDS ORDERED: Z GUARD REMEDY 4 OZ OINT TP PRN (02:30)
[2022-05-11] MEDS: ENOXAPARIN SODIUM 40 MG/0.4 ML DISP.SYRIN SQ SCH ×2 (02:30→22:08)
[2022-05-11] MEDS ORDERED: ACETAMINOPHEN 325 MG TABLET PO PRN (02:30)
[2022-05-11] MEDS ORDERED: MAGNESIUM HYDROXIDE 30 ML UDC PO PRN (02:30)
--- NOTE | 2022-05-11 02:35 | NUR ---
PATIENT TRANSFERRED UNDER ACLS
[2022-05-11] MEDS: BLOOD SUGAR DIAGNOSTIC 1 EACH STRIP IN SCH ×11 (02:56→13:00)
--- NOTE | 2022-05-11 03:00 | NUR ---
MED NOTE: PT TAKES XARELTO 10MG DAILY FOR HISTORY OF BLOOD CLOTS. LAST DOSE WAS TAKEN JUST PRIOR RO ADMISSION. PER TAMIKO [facility] HOLD LOVENOX.
[2022-05-11 04:41] LABS: CALCIUM, SERUM 8.3 mg/dL (8.5-10.1); CREATININE 0.7 mg/dL (0.6-1.3); MAGNESIUM 2.1 mg/dL (1.8-2.4); PHOSPHORUS 2.5 mg/dL (2.5-4.9)
--- NOTE | 2022-05-11 05:05 | NUR ---
ICU/RN: TAMIKO MERCER COMPENSATION AND BENEFITS ADMINISTRATOR MADE AWARE OF LATEST BLOOD GLUCOSE RESULTS 114 ADVISED TO CONTINUE INSULIN DRIP AND IVF NS@125mL/HR AND TO NOTIFY HER WHEN BLOOD GLUCOSE DROPS BELOW 100. WILL CONTINUE WITH PLAN OF CARE.
[2022-05-11] MEDS ORDERED: IV D5/ 0.9% NACL 1,000 ML IV PRN (06:00)
--- NOTE | 2022-05-11 06:00 | NUR ---
ICU/RN: LATEST BMP RESULTS RELAYED TO TAMIKO CALIX ECONOMIC DEVELOPMENT DIRECTOR. NEW ORDERS TO CHANGE IVF TO D5NS @125mL/HR. CONTINUE PLAN OF CARE.
[2022-05-11] MEDS: MAG HYDROX/AL HYDROX/SIMETH 30 ML UDC PO PRN ×2 (06:03→13:46)
--- NOTE | 2022-05-11 06:23 | NUR ---
COFFEE SHOP MANAGER PER OLIVIA MERCER HOLD LOVENOX PT TOOK HER XARELTO ON 05/10
--- NOTE | 2022-05-11 08:00 | NUR ---
OPENING NOTE: REPORT RECEIVED FROM CHRISTIAN ZAVALETA. LABS AND ORDERS REVIEWED DURING REPORT. PT IS ON INSULIN GTT PER DKA PROTOCOL. BG X 100/2= UNITS/HR. PT CHECKED ON HOURLY AND PRN BY NURSING STAFF.
[2022-05-11] MEDS: ONDANSETRON HCL/PF 4 MG/2 ML VIAL IVP PRN ×2 (08:28→17:32)
[2022-05-11 09:01] LABS: CALCIUM, SERUM 7.9 mg/dL (8.5-10.1); CREATININE 0.6 mg/dL (0.6-1.3); PHOSPHORUS 3.2 mg/dL (2.5-4.9); POTASSIUM 3.4 mmol/L (3.5-5.1)
[2022-05-11] MEDS ORDERED: CALCIUM CARBONATE 500 MG TAB.CHEW PO ONE (11:00)
[2022-05-11] MEDS ORDERED: CALCIUM CARBONATE 500 MG TAB.CHEW PO SCH (11:00)
[2022-05-11] MEDS: POTASSIUM CL. PREMIX PERIPHER. 50 ML IV SCH ×2 (11:00→12:19)
--- NOTE | 2022-05-11 12:00 | NUR ---
BLOOD SUGAR AT THIS TIME IS 48, INSULIN GTT STOPPED. JENNIFER GREGG NOTIFIED. LAB DUE TO DRAW NEXT BMP AT THIS TIME.
[2022-05-11 12:51] LABS: CALCIUM, SERUM 8.1 mg/dL (8.5-10.1); CREATININE 0.5 mg/dL (0.6-1.3); MAGNESIUM 2.1 mg/dL (1.8-2.4); PHOSPHORUS 2.8 mg/dL (2.5-4.9); POTASSIUM 3.6 mmol/L (3.5-5.1)
--- NOTE | 2022-05-11 13:00 | NUR ---
BLOOD GLUCOSE AT THIS TIME IS 48 AGAIN. JUICE GIVEN TO PATIENT PER PT REQUEST. ANION GAP CLOSED AT THIS TIME PER 12PM BMP RESULTS. JENNIFER GREGG DC'D INSULIN GTT, SLIDING SCALE ORDERED, DIET ORDERED. PT STATES 1 JUICE WILL BE ENOUGH AT THIS TIME. WILL CONTINUE TO MONITOR.
[2022-05-11] MEDS ORDERED: DEXTROSE 50%-WATER 50 ML DISP.SYRIN IV PRN (13:30)
[2022-05-11] MEDS ORDERED: INSULIN REGULAR, HUMAN 100 UNIT/ML 3 ML VIAL SQ PRN (13:30)
[2022-05-11] MEDS ORDERED: IV NS 0.9% 1,000 ML IV PRN (13:30)
--- NOTE | 2022-05-11 17:11 | NUR ---
BLOOD SUGAR NOT COVERED WITH INSULIN. PT REFUSED TO EAT DINNER. PT'S BLOOD SUGAR EARLIER WAS 48.
[2022-05-11] MEDS: BLOOD SUGAR DIAGNOSTIC 1 EACH STRIP VI SCH ×2 (17:31→21:14)
--- NOTE | 2022-05-11 18:45 | NUR ---
PT TRANSFERRED VIA WHEELCHAIR BY FLOUR WORKER. BEDSIDE REPORT GIVEN TO GORING CUTTER RN WARREN FOR TRANSFER TO ROOM 307. ALL BELONGINGS AND MEDS SENT WITH PATIENT. PATIENT SETTLED IN ROOM. PT CHECKED ON HOURLY AND PRN BY NURSING STAFF.
--- NOTE | 2022-05-11 19:30 | NUR ---
MS RN OPENING NOTE RECEIVED PT AWAKE IN BED. A/O X4 AND ABLE TO MAKE NEEDS KNOWN. PT STABLE ON ROOM AIR. NO SOB OR S/S OF RESPIRATORY DISTRESS. BREATHING EVEN AND UNLABORED. IV ACCESS RFA 22 GAUGE AND LFA 20 GAUGE, INTACT AND PATENT. SAFETY PRECAUTIONS IN PLACE. BED IN LOWEST LOCKED POSITION, HOB ELEVATED, SIDE RAILS UP X2, AND CALL LIGHT AND TABLE WITHIN REACH. ALL NEEDS MET AT THIS TIME.
[2022-05-11] MEDS ORDERED: CALCIUM CARBONATE 500 MG TAB.CHEW PO PRN (21:00)
[2022-05-11] MEDS ORDERED: *INSULIN REGULAR(HUMULIN R)HUM 100 UNIT/ML VIAL SQ PRN (22:00)
[2022-05-11] MEDS ORDERED: INSULIN GLARGINE, 100 UNIT/ML CARTRIDGE SQ SCH (22:00)
--- NOTE | 2022-05-11 22:52 | NUR ---
RN NOTE PT COMPLAINING OF HEARTBURN. ADMINISTERED TUMS 1500 MG FOR HEARTBURN ORDERED. PT REFUSING IVF AT THIS TIME. EXPLAINED RISKS OF REFUSING IVF, PT STILL REFUSED. MADE COMFORTABLE IN BED. ALL NEEDS MET AT THIS TIME.
--- NOTE | 2022-05-12 05:43 | NUR ---
RN NOTE PT STATED SHE WAS HUNGRY AND DID NOT EAT DINNER LAST NIGHT. BS 50. NO OTHER SYMPTOMS OF HYPOGLYCEMIA BESIDES HUNGER. GAVE PT ORANGE JUICE AND SNACKS. WILL RECHECK BS IN 1 HOUR.
[2022-05-12 06:20] LABS: ALBUMIN 2.8 g/dL (3.4-5.0); BILIRUBIN,TOTAL 0.2 mg/dL (0.2-1.0); CREATININE 0.5 mg/dL (0.6-1.3); PHOSPHORUS 2.6 mg/dL (2.5-4.9); POTASSIUM 3.6 mmol/L (3.5-5.1); TOTAL PROTEIN, SERUM 6.5 g/dL (6.4-8.2)
[2022-05-12 06:31] LABS: BASOPHILS % (AUTO) 0.3 % (0.0-2.0); EOSINOPHILS % (AUTO) 0.5 % (0.0-6.0); HEMATOCRIT 29 % (33-45); HEMOGLOBIN 8.7 g/dL (11.5-14.8); LYMPHOCYTES # (AUTO) 1.3 K/uL (0.8-4.8); LYMPHOCYTES % (AUTO) 17.4 % (20.0-44.0); MEAN CORPUSCULAR HGB CONC 30 g/dl (31.0-36.0); MEAN CORPUSCULAR VOLUME 69 fL (82-100); MONOCYTES # (AUTO) 0.5 K/uL (0.1-1.30); MONOCYTES % (AUTO) 6.6 % (2.0-12.0); NEUTROPHILS # (AUTO) 5.6 K/uL (1.8-8.9); NEUTROPHILS % (AUTO) 75.2 % (43.0-81.0); PLATELET COUNT (AUTO) 434 K/uL (150-450); RED BLOOD CELL COUNT(AUTO) 4.23 MIL/uL (4.0-5.2); WHITE BLOOD COUNT (AUTO) 7.4 K/uL (4.3-11.0)
[2022-05-12 06:38] LABS: THYROID STIMULATING HORMONE 0.268 uIU/mL (0.358-3.74)
[2022-05-12] MEDS: BLOOD SUGAR DIAGNOSTIC 1 EACH STRIP VI SCH ×2 (06:40→11:33)
--- NOTE | 2022-05-12 06:41 | NUR ---
RN NOTE PT BS UP TO 145 AFTER CONSUMING SNACKS. HELD INSULIN D/T PREVIOUS BS 50. ALL NEEDS MET AT THIS TIME.
--- NOTE | 2022-05-12 07:00 | NUR ---
MS RN CLOSING NOTE PT AWAKE IN BED. A/O X4 AND ABLE TO MAKE NEEDS KNOWN. PT STABLE ON ROOM AIR. NO SOB OR S/S OF RESPIRATORY DISTRESS. BREATHING EVEN AND UNLABORED. IV ACCESS RFA 22 GAUGE AND LFA 20 GAUGE, INTACT AND PATENT, STILL REFUSING IVF AT THIS TIME. ALL DUE MEDS GIVEN ORDERED. SAFETY PRECAUTIONS IN PLACE AT ALL TIMES. BED IN LOWEST LOCKED POSITION, HOB ELEVATED, SIDE RAILS UP X2, AND CALL LIGHT AND TABLE WITHIN REACH. ALL NEEDS MET AT THIS TIME AND WILL ENDORSE TO ONCOMING NURSE FOR JUSTO.
--- NOTE | 2022-05-12 07:00 | NUR ---
MS RN OPENING NOTES PATIENT LAYING IN BED, A/O X 4, ABLE TO MAKE NEEDS KNOWN. TOLERATING WELL ON ROOM AIR WITH NO S/S RESPIRATORY DISTRESS. NO COMPLAINTS OF PAIN OR DISCOMFORT AT THIS TIME. RFA # 22 G SL AND LFA # 20 G SL CLEAN, INTACT, AND FLUSHING WELL. PATIENT REFUSING IV FLUIDS AT THIS TIME. SAFETY MEASURES IN PLACE: BED IN LOWEST LOCKED POSITION, SIDE RAILS UP X 2, CALL LIGHT WITHIN REACH. WILL CONTINUE TO MONITOR.
[2022-05-12 08:00] VITALS: BP 110/75
[2022-05-12] MEDS ORDERED: IV NS 0.9% 500 ML IV ONE (10:00)
--- NOTE | 2022-05-12 10:47 | NUR ---
PATIENT WITH FEVER OF 99.8 AND REQUESTING MEDICATION. PRN TYLENOL 650 MG PO ADMINISTERED ORDERED. WILL CONTINUE TO MONITOR FOR S/S FEVER.
--- NOTE | 2022-05-12 12:08 | NUR ---
MS PARISH WORKER NOTES PATIENT MADE AWARE OF MD DISCHARGE ORDERS. PATIENT VERBALIZED UNDERSTANDING OF MD DISCHARGE INSTRUCTIONS AND SIGNED DISCHARGE INSTRUCTIONS SHEET. PATIENT WAS INFORMED TO CONTINUE HER LISPRO INSULIN AT THE SAME SLIDING SCALE SHE USES AT HOME PER MD. IV LINES AND ID BAND REMOVED. PATIENT TRANSFERRED OFF OF UNIT VIA WHEELCHAIR BY PATTERN HANGER WITHOUT INCIDENT AND WAS STABLE AT TIME OF DISCHARGE. COPIES OF ALL D/C PAPERWORK AND D/C EDUCATION WERE PROVIDED TO PATIENT.
--- NOTE | 2022-05-14 16:32 | NUR ---
SS consult requested over the weekend for transitional housing. Pt. has departed.
== END 2022-05-12 12:15 | disposition home or self-care (01) | DRG 420 ==
LOC: ER 23:23 → ICU 05-11 01:51 → MED 05-11 18:44
PROVIDERS: ADMIT Registered Nurse; ATTEND Nurse Practitioner Acute Care
DX: E10.10 Type 1 diabetes mellitus with ketoacidosis without coma (principal); E10.649 Type 1 diabetes mellitus with hypoglycemia without coma; E10.42 Type 1 diabetes mellitus with diabetic polyneuropathy; D50.9 Iron deficiency anemia, unspecified; F19.10 Other psychoactive substance abuse, uncomplicated; F17.200 Nicotine dependence, unspecified, uncomplicated; F32.A Depression, unspecified; G43.909 Migraine, unspecified, not intractable, without status migrainosus; Z79.01 Long term (current) use of anticoagulants; Z79.4 Long term (current) use of insulin; Z20.822 Contact with and (suspected) exposure to COVID-19; K21.9 Gastro-esophageal reflux disease without esophagitis; Z91.14 Patient's other noncompliance with medication regimen
CPT/HCPCS: 36415; 71045-TC; 80048-TC; 80053-TC; 80061-TC; 80076-TC; 82010-TC; 82962-TC; 83690-TC; 83735-TC; 84100-TC; 84443-TC; 85025-TC; 85730-TC; 87081-TC; C9803; G0378; J1650; J1815; J2405; J3480; J7030; J7042